=== PATIENT | male | born 1945 | race Caucasian/White ===

== ENCOUNTER 2016-12-14 12:05 | Inpatient (IN) | payer MEDICARE ==
[2016-12-14] VITALS (10 sets, daily range): BP systolic 116–165; BP diastolic 62–85; PULSE 83–101; RESP 18–20; TEMP 98–101.7; O2SAT 92–95
[~2016-12-14] VITALS: Ht 177.8 cm; Wt 99.9 kg
[~2016-12-14 12:05] MED LIST: CELE200 PO; FENT12DI TD; GABA100C4 PO
[2016-12-14] MEDS ORDERED: SODIUM CHLOR 0.9% 1000 ML INJ 1,000 ML IV ONE ×3 (12:30)
[2016-12-14] MEDS ORDERED: IBUPROFEN 600 MG TAB PO ONE (12:30)
--- NOTE | 2016-12-14 12:39 | PD ---
HPI Chief Complaint: Cold / Flu Symptoms Time Seen by Provider: 12:20 Travel History International Travel<30 days: No Contact w/Intl Traveler<30days: No Traveled to known affect area: No History of Present Illness HPI 71-year-old male with history of hypertension, CAD, CABG, here with significant other for evaluation of fever, cough, congestion, and altered mental status. Symptoms started 2 days ago with a sore throat. Yesterday the patient developed fever and cough. He was seen by [facility] urgent care and was diagnosed with influenza B and started on Relenza. Symptoms have not been improving. He went back to [facility] today and was given a breathing treatment this morning as well as a dose of Tylenol that was received about an hour prior to arrival. According to the patient's , the patient is somewhat delirious. Cough is productive of greenish/yellowish sputum, and there seems to be some pinkish sputum as well. He is having some chest tightness and difficulty breathing. No history of DVT or PE. PFSH Past Medical History Hx Anticoagulant Therapy: Yes (81MG ASA) Arthritis: Yes Blood Disorders: No Anxiety: Yes Depression: Yes Cancer: Yes (Skin) Cardiac Catheterization: Yes Cardiovascular Problems: Yes (HEART ATTACK; OPEN HEART, HTN) High Cholesterol: Yes Chemotherapy: No Congestive Heart Failure: Yes Coronary Artery Disease: Yes Diabetes: No Diminished Hearing: Yes Endocrine: No Gastrointestinal Disorders: No Genitourinary: Yes (kidney stones) Hepatitis: No Hiatal Hernia: No Hypertension: Yes Immune Disorder: No Implanted Vascular Access Dvce: Yes Kidney Stones: Yes Musculoskeletal: Yes (Chronic back pain) Neurologic: Yes (Concussion) Psychiatric: Yes (DEPRESSION) Reproductive: No Respiratory: Yes (poss sinus infection bronchial infection 4-5 mos ago) Myocardial Infarction: Yes Thyroid Disease: No PNEUMOCCOCAL Vaccine (Year): 1 Past Surgical History Abdominal Surgery: Yes (appendectomy at age 12y/o) Appendectomy: Yes Body Medical Devices: Sternal wires Cardiac Surgery: Yes (quad by-pass) Coronary Artery Bypass Graft: Yes (X's 4) Ear Surgery: No Endocrine Surgery: No Eye Surgery: No Genitourinary Surgery: Yes (Uretheral dilatation) Joint Replacement: No Oral Surgery: Yes (Sinus) Pacemaker: No Thoracic Surgery: Yes (BYPASS) Other Surgery: Yes Social History Alcohol Use: No Tobacco Use: No Substance Use: No Allergies-Medications (Allergen,Severity, Reaction): Coded Allergies: Penicillin (Verified Allergy, Severe, Rash, 12/14/16) Reported Meds & Prescriptions Reported Meds & Active Scripts Active Reported Losartan (Losartan Potassium) 50 Mg Tab 50 Mg PO DAILY Cymbalta DR (Duloxetine HCl) 60 Mg Capdr 60 Mg PO DAILY Aripiprazole 5 Mg Tab 5 Mg PO DAILY Tizanidine (Tizanidine HCl) 4 Mg Cap 4 Mg PO BID Wellbutrin Xl 24 HR (Bupropion HCl) 150 Mg Tab 150 Mg PO DAILY Lipitor (Atorvastatin Calcium) 20 Mg Tab 20 Mg PO HS Aspirin 81 (Aspirin) 81 Mg Tabdr 81 Mg PO DAILY Fentanyl Patch 72 HR (Fentanyl) 12 Mcg/Hr Patch 25 Mcg T-DERMAL Q72H Remove old patch when new one placed. Celebrex (Celecoxib) 200 Mg Cap 200 Mg PO DAILY Gabapentin 300 Mg Cap 300 Mg PO HS Review of Systems Except as stated in HPI: all other systems reviewed are Neg Physical Exam Narrative GENERAL: Well-developed, well-nourished, diaphoretic, awake, alert, no acute distress. SKIN: Diaphoretic. Hot to touch. HEAD: Atraumatic. Normocephalic. EYES: Pupils equal and round. No scleral icterus. No injection or drainage. ENT: No nasal bleeding or discharge. Mucous membranes pink and moist. Normal pharynx. Normal external auditory canals and tympanic the reins bilaterally. NECK: Trachea midline. No JVD. No nuchal rigidity. CARDIOVASCULAR: Tachycardic, rate 105, regular. RESPIRATORY: No accessory muscle use. Coarse breath sounds at right base. No wheezes or rales. Breath sounds equal bilaterally. GASTROINTESTINAL: Abdomen soft, non-tender, nondistended. MUSCULOSKELETAL: No obvious deformities. No clubbing. No cyanosis. No edema. NEUROLOGICAL: Awake and alert. No obvious cranial nerve deficits. Motor grossly within normal limits. Normal speech. PSYCHIATRIC: Appropriate mood and affect; insight and judgment normal. Data Data Last Documented VS Vital Signs Date Time Temp Pulse Resp B/P Pulse Ox O2 Delivery O2 Flow Rate FiO2 12/14/16 13:41 92 18 155/77 94 Room Air 12/14/16 12:11 101.7 Orders Electrocardiogram (12/14/16 12:30) Complete Blood Count With Diff (12/14/16 12:30) Comprehensive Metabolic Panel (12/14/16 12:30) Prothrombin Time / Inr (Pt) (12/14/16 12:30) Act Partial Throm Time (Ptt) (12/14/16 12:30) Lactic Acid Sepsis Protocol (12/14/16 12:30) Ckmb (Isoenzyme) Profile (12/14/16 12:30) Troponin I (12/14/16 12:30) Urinalysis - C+S If Indicated (12/14/16 12:30) Blood Culture (12/14/16 12:30) Chest, Single Ap (12/14/16 12:30) Ecg Monitoring (12/14/16 12:30) Iv Access Insert/Monitor (12/14/16 12:30) Oximetry (12/14/16 12:30) Oxygen Administration (12/14/16 12:30) Sodium Chlor 0.9% 1000 Ml Inj (Ns 1000 M (12/14/16 12:30) Sodium Chlor 0.9% 1000 Ml Inj (Ns 1000 M (12/14/16 12:30) Sodium Chlor 0.9% 1000 Ml Inj (Ns 1000 M (12/14/16 12:30) Ibuprofen (Motrin) (12/14/16 12:30) Influenzae A/B Antigen (12/14/16 12:33) Ceftriaxone Inj (Rocephin Inj) (12/14/16 12:45) Azithromycin Inj (Zithromax Inj) (12/14/16 12:45) CKMB (12/14/16 13:27) CKMB% (12/14/16 13:27) Patient Transfer (12/14/16 ) Oseltamivir (Tamiflu) (12/14/16 14:45) Labs Laboratory Tests Test 12/14/16 13:27 White Blood Count 20.4 TH/MM3 Red Blood Count 5.77 MIL/MM3 Hemoglobin 17.8 GM/DL Hematocrit 52.0 % Mean Corpuscular Volume 90.1 FL Mean Corpuscular Hemoglobin 30.8 PG Mean Corpuscular Hemoglobin 34.2 % Concent Red Cell Distribution Width 14.1 % Platelet Count 137 TH/MM3 Mean Platelet Volume 8.6 FL Neutrophils (%) (Auto) 85.2 % Lymphocytes (%) (Auto) 3.6 % Monocytes (%) (Auto) 7.8 % Eosinophils (%) (Auto) 0.0 % Basophils (%) (Auto) 3.4 % Neutrophils # (Auto) 17.4 TH/MM3 Lymphocytes # (Auto) 0.7 TH/MM3 Monocytes # (Auto) 1.6 TH/MM3 Eosinophils # (Auto) 0.0 TH/MM3 Basophils # (Auto) 0.7 TH/MM3 CBC Comment AUTO DIFF Differential Total Cells 100 Counted Neutrophils % (Manual) 53 % Band Neutrophils % 26 % Lymphocytes % 7 % Monocytes % 11 % Eosinophils % 3 % Neutrophils # (Manual) 16.1 TH/MM3 Differential Comment FINAL DIFF MANUAL Platelet Estimate LOW Platelet Morphology Comment NORMAL Red Cell Morphology Comment NORMAL Prothrombin Time 13.7 SEC Prothromb Time International 1.2 RATIO Ratio Activated Partial 30.6 SEC Thromboplast Time Sodium Level 136 MEQ/L Potassium Level 3.9 MEQ/L Chloride Level 97 MEQ/L Carbon Dioxide Level 30.0 MEQ/L Anion Gap 9 MEQ/L Blood Urea Nitrogen 18 MG/DL Creatinine 1.50 MG/DL Estimat Glomerular Filtration 46 ML/MIN Rate Random Glucose 103 MG/DL Lactic Acid Level 2.3 mmol/L Calcium Level 8.3 MG/DL Total Bilirubin 1.0 MG/DL Aspartate Amino Transf 87 U/L (AST/SGOT) Alanine Aminotransferase 49 U/L (ALT/SGPT) Alkaline Phosphatase 50 U/L Total Creatine Kinase 2428 U/L Creatine Kinase MB 8.1 NG/ML Creatine Kinase MB % 0.3 % Troponin I 0.15 NG/ML Total Protein 8.0 GM/DL Albumin 3.6 GM/DL MDM Medical Decision Making Medical Screen Exam Complete: Yes Emergency Medical Condition: Yes Medical Record Reviewed: Yes Interpretation(s) EKG: Sinus, rate 96, normal axis, normal intervals, Q waves in inferior leads, no acute ischemic abnormality. Differential Diagnosis Sepsis, pneumonia, influenza, ACS, dehydration, electrolyte abnormality, PE Narrative Course Initial vital signs show heart rate 101, blood pressure 144/85, pulse ox 93% on room air, oral temp of 101.7F. CBC is remarkable for WBC 20.4, hemoglobin 17.8, hematocrit 52, platelets 137, neutrophils 85%, 26% band neutrophils. CMP is remarkable for creatinine 1.5, GFR 46. Lactic acid is 2.3. Troponin is 0.15, and is likely secondary to sepsis. Chest x-ray shows no acute disease. Influenza B positive. The patient was empirically given Rocephin and azithromycin for sepsis with likely respiratory cause. His symptoms could all be secondary to flu, however superimposed bacterial infection is also possible. He was given a dose of Tamiflu. Patient was also given 3 L of IV fluids with improvement in heart rate to the low 90s. He will be admitted for further treatment and evaluation of sepsis, influenza. Given the patient's age, sepsis, and positive influenza B swab, admission to the intensive care unit is in the patient's best interest. Case discussed with paper coater Dr. Moe who would like the patient to be emergently transferred to the main hospital ICU. The patient and the patient's were made aware of all findings and plan for admission. Critical Care Narrative Aggregate critical care time was 35 minutes. Time to perform other separately billable procedures was not included in the critical care time. My time did not include minutes spent treating any other patients simultaneously or on activities that did not directly contribute to the patient's treatment. The services I provided to this patient were to treat and/or prevent clinically significant deterioration that could result in: , permanent disability, worsening clinical condition. I provided critical care services requiring my management, as noted below: Chart data review, documentation time, medication orders and management, vital sign assessments/reviewing monitor data, ordering and reviewing lab tests, ordering and interpreting/reviewing x-rays and diagnostic studies, care of the patient and discussion of the patient with the admitting physicians. Diagnosis Primary Impression: Sepsis Qualified Code: A41.9 - Sepsis, due to unspecified organism Additional Impression: Influenza B Admitting Information Admitting Physician Requests: Admit Aaron Beltre MD Dec 14, 2016 12:39
[2016-12-14] MEDS ORDERED: cefTRIAXone INJ 1,000 MG in SODIUM CHLORIDE 0.9% INJ 100 ML IV ONE (12:45)
[2016-12-14] MEDS ORDERED: AZITHROMYCIN INJ 500 MG in SODIUM CHLOR 0.9% 250 ML INJ 250 ML IV ONE (12:45)
--- NOTE | 2016-12-14 12:55 | RADHPO ---
EXAM DATE/TIME: 12/14/2016 12:33 [facility] COMPARISON: CHEST SINGLE AP, March 31, 2013, 20:47. INDICATIONS : Fever, shortness of breath, and congestion for two days. Productive cough of green and yellow sputum. MEDICAL HISTORY : Hypertension. SURGICAL HISTORY : CABG. ENCOUNTER: Initial ACUITY: 2 days PAIN SCORE: 1/10 LOCATION: Bilateral chest FINDINGS: A single view of the chest demonstrates the lungs to be symmetrically aerated without evidence of mas s, infiltrate or effusion. The cardiomediastinal contours are unremarkable. Osseous structures are intact. CONCLUSION: Normal examination. Numerous intact sternal wires Yo Valles MD on December 14, 2016 at 12:53 Board Certified Radiologist. This report was verified electronically.
[2016-12-14 13:39] LABS: AUTOMATED NEUTROPHIL # 17.4 TH/MM3 (1.8-7.7); BASOPHIL # 0.7 TH/MM3 (0-0.2); BASOPHIL % 3.4 % (0.0-2.0); LYMPH % 3.6 % (9.0-44.0); LYMPHOCYTE # 0.7 TH/MM3 (1.0-4.8); MEAN CELL VOLUME 90.1 FL (80.0-100.0); MEAN CORPUSCULAR HEMOGLOBIN 30.8 PG (27.0-34.0); MEAN CORPUSCULAR HGB CONC 34.2 % (32.0-36.0); MONO % 7.8 % (0.0-8.0); NEUT % 85.2 % (16.0-70.0); PLATELET COUNT 137 TH/MM3 (150-450); RED BLOOD COUNT 5.77 MIL/MM3 (4.50-5.90); RED CELL DISTRIBUTION WIDTH 14.1 % (11.6-17.2); WHITE BLOOD COUNT 20.4 TH/MM3 (4.0-11.0)
[2016-12-14 13:45] LABS: HEMO FLAGS AUTO DIFF
[2016-12-14 13:47] LABS: CHLORIDE 97 MEQ/L (98-107); POTASSIUM 3.9 MEQ/L (3.5-5.1); SODIUM (NA) 136 MEQ/L (136-145)
[2016-12-14 13:51] LABS: ANION GAP 9 MEQ/L (5-15)
[2016-12-14 13:52] LABS: APTT (PATIENT) 30.6 SEC (24.3-30.1); BLOOD UREA NITROGEN 18 MG/DL (7-18); INTERNATIONAL NORMALIZED RATIO 1.2 RATIO; PROTHROMBIN TIME - PATIENT 13.7 SEC (9.8-11.6)
[2016-12-14 13:55] LABS: ALT (GPT) 49 U/L (12-78); AST (GOT) 87 U/L (15-37); GLOMERULAR FILTRATION RATE 46 ML/MIN (>89)
[2016-12-14 13:57] LABS: ALKALINE PHOSPHATASE 50 U/L (45-117)
[2016-12-14 14:03] LABS: BANDS 26 % (0-6); EOSINOPHILS 3 % (0-4); NEUTROPHIL # MANUAL DIFF 16.1 TH/MM3 (1.8-7.7); POLYS (SEG NEUTROPHILS) 53 % (16-70); WBC DIFF SAMPLE 100
[2016-12-14] MEDS ORDERED: GABA300C5 PO ×2 (14:03)
[2016-12-14] MEDS ORDERED: CELE200C PO (14:03)
[2016-12-14] MEDS ORDERED: ASPI-110 PO ×2 (14:03)
[2016-12-14] MEDS ORDERED: FENT12DI T-DERMAL ×2 (14:03)
[2016-12-14] MEDS ORDERED: LIPI20TA PO ×2 (14:03)
[2016-12-14] MEDS ORDERED: BUPR150XL PO ×2 (14:03)
[2016-12-14 14:04] LABS: PLATELET ESTIMATE SMEAR LOW (NORMAL); PLATELET MORPHOLOGY NORMAL (NORMAL); SCAN/DIFF FINAL DIFF MANUAL
[2016-12-14 14:09] LABS: CREATINE KINASE 2428 U/L (39-308)
[2016-12-14] MEDS ORDERED: TIZA4CAP3 PO ×2 (14:11)
[2016-12-14] MEDS ORDERED: LOSA50TA PO (14:11)
[2016-12-14] MEDS ORDERED: ARIP1TAB11 PO (14:11)
[2016-12-14] MEDS ORDERED: CYMB60CA PO ×2 (14:11)
[2016-12-14 14:21] LABS: CKMB 8.1 NG/ML (0.5-3.6)
[2016-12-14] MEDS ORDERED: OSELTAMIVIR PHOSPHATE 75 MG CAP PO ONE (14:45)
[2016-12-14 15:38] LABS: LACTIC ACID GHOST NOT REPORTABLE
[2016-12-14] MEDS ORDERED: POTASSIUM CHLOR 20 MEQ PREMIX 100 ML IV PRN ×2 (17:00)
[2016-12-14] MEDS ORDERED: POTASSIUM CL 40 MEQ/30 ML LIQ UDC PO/TUBE PRN ×2 (17:00)
[2016-12-14] MEDS ORDERED: POTASSIUM PHOSPHATE MONOBASIC 500 MG TAB PO/TUBE PRN (17:00)
[2016-12-14] MEDS ORDERED: MAGNESIUM SULFATE INJ 2 GM in SODIUM CHLORIDE 0.9% INJ 96 ML IV PRN (17:00)
[2016-12-14] MEDS ORDERED: MISCELLANEOUS NURSING INFORMATION XX SCH (17:00)
[2016-12-14] MEDS ORDERED: DEXTROSE 50% IN WATER 50 ML VIAL(D50) IV PUSH PRN (17:00)
[2016-12-14] MEDS ORDERED: POTASSIUM PHOSPHATE INJ 30 MMOL in SODIUM CHLOR 0.9% 250 ML INJ 250 ML IV PRN (17:00)
[2016-12-14] MEDS ORDERED: ONDANSETRON HCL 4 MG/2 ML VIAL IV PRN (17:00)
[2016-12-14] MEDS ORDERED: POTASSIUM PHOSPHATE MONOBASIC 500 MG TAB PO PRN (17:00)
[2016-12-14] MEDS ORDERED: SODIUM CHLORIDE 0.9% FLUSH 5 ML FLUSH IV FLUSH PRN (17:00)
[2016-12-14] MEDS ORDERED: POTASSIUM CHLOR 40 MEQ PREMIX 100 ML IV PRN ×2 (17:00)
[2016-12-14] MEDS ORDERED: MAGNESIUM OXIDE 400 MG TAB PO PRN (17:00)
[2016-12-14] MEDS ORDERED: CHLORHEXIDINE GLUCONATE 2 % 1 PACK (2 CLOTHS) TOP PRN (17:00)
[2016-12-14] MEDS ORDERED: SODIUM PHOSPHATE INJ 30 MMOL in SODIUM CHLOR 0.9% 250 ML INJ 240 ML IV PRN (17:00)
[2016-12-14] MEDS ORDERED: MAGNESIUM SULFATE INJ 4 GM in SODIUM CHLORIDE 0.9% INJ 92 ML IV PRN (17:00)
--- NOTE | 2016-12-14 17:36 | HHI.HP ---
[facility] Service Critical Care Medicine Primary Care Physician Gen Denton MD Admission Diagnosis sepsis, influenza B Diagnosis: Chief Complaint: shortness of breath Travel History International Travel<30 Days: No Contact w/Intl Traveler <30 Da: No Traveled to Known Affected Are: No History of Present Illness This is a 71-year-old male with a history of hypertension, coronary disease with prior NC in his mid 40s, 4 vessel CABG in his 60s, who initially presented to an urgent care center with fever, cough, congestion and was diagnosed with influenza and given an antiviral at that time. He re-presented to the [facility] emergency department with similar symptoms, but altered mental status and hypotension with lactic acidosis. He again test positive for influenza B. Of note, he did get the influenza vaccine approximately 4 months ago. He was given 3 L normal saline and his hypotension resolved. He is transferred to the [facility] intensive care unit for evaluation and management of severe sepsis secondary to influenza pneumonia. Review of Systems Constitutional: COMPLAINS OF: Fever, Chills, DENIES: Diaphoretic episodes, Fatigue, Weight loss, Dizziness, Night Sweats Endocrine: DENIES: Heat/cold intolerance Ears, nose, mouth, throat: DENIES: Nasal discharge, Throat pain, Sinus Pain Respiratory: COMPLAINS OF: Cough, Sputum production, Shortness of breath, DENIES: Wheezing, Hemoptysis Cardiovascular: DENIES: Chest pain, Palpitations, Syncope, Dyspnea on Exertion , Lower Extremity Edema Gastrointestinal: DENIES: Abdominal pain, Black stools, Constipation, Diarrhea , Nausea, Vomiting Neurologic: DENIES: Headache, Localized weakness Psychiatric: DENIES: Anxiety, Confusion Past Family Social History Allergies: Coded Allergies: Penicillin (Verified Allergy, Severe, Rash, 12/14/16) Past Medical History Arthritis Anxiety Depression Skin cancer Prior cardiac catheterization History of acute NC in his 40s Hypertension Hyperlipidemia Congestive heart failure Coronary artery disease Diminished hearing Kidney stones Chronic back pain Remote history of concussions Past Surgical History Appendectomy at age 12 Four-vessel CABG in his 60s Urethral dilation Sinus surgery Reported Medications Losartan (Losartan Potassium) 50 Mg Tab 50 Mg PO DAILY Cymbalta DR (Duloxetine HCl) 60 Mg Capdr 60 Mg PO DAILY Aripiprazole 5 Mg Tab 5 Mg PO DAILY Tizanidine (Tizanidine HCl) 4 Mg Cap 4 Mg PO BID Wellbutrin Xl 24 HR (Bupropion HCl) 150 Mg Tab 150 Mg PO DAILY Lipitor (Atorvastatin Calcium) 20 Mg Tab 20 Mg PO HS Aspirin 81 (Aspirin) 81 Mg Tabdr 81 Mg PO DAILY Fentanyl Patch 72 HR (Fentanyl) 12 Mcg/Hr Patch 25 Mcg T-DERMAL Q72H Remove old patch when new one placed. Celebrex (Celecoxib) 200 Mg Cap 200 Mg PO DAILY Gabapentin 300 Mg Cap 300 Mg PO HS Active Ordered Medications See MAR Family History Reviewed and found to be noncontributory to his acute illness. Social History Denied tob, etoh, doa. Physical Exam Vital Signs Vital Signs Date Time Temp Pulse Resp B/P Pulse Ox O2 Delivery O2 Flow Rate FiO2 12/14/16 15:13 83 18 116/62 94 Room Air 12/14/16 15:07 98.9 12/14/16 13:41 92 18 155/77 94 Room Air 12/14/16 13:20 95 18 93 Room Air 12/14/16 13:18 96 Room Air 12/14/16 13:18 92 Room Air 12/14/16 12:11 101.7 101 18 144/85 93 Physical Exam GENERAL: Elderly male, lying in bed, no acute distress. HEENT: Pupils equal round and reactive. Mucous membranes are moist. NECK: Trachea is midline. There is no JVD. CHEST: Unlabored respirations. Equal chest rise. Clear to auscultation. CARDIOVASCULAR: Normal rate, regular rhythm. No appreciable murmurs. ABDOMEN: Obese, nontender, nondistended. No guarding. MUSCULOSKELETAL: Peripheral edema. Distal pulses 2+. NEUROLOGICAL: RASS 0. CAM -. Follows commands in all 4 extremities. No gross focal motor or sensory deficits. Laboratory Laboratory Tests Test 12/14/16 12/14/16 13:27 15:12 White Blood Count 20.4 Red Blood Count 5.77 Hemoglobin 17.8 Hematocrit 52.0 Mean Corpuscular Volume 90.1 Mean Corpuscular Hemoglobin 30.8 Mean Corpuscular Hemoglobin 34.2 Concent Red Cell Distribution Width 14.1 Platelet Count 137 Mean Platelet Volume 8.6 Neutrophils (%) (Auto) 85.2 Lymphocytes (%) (Auto) 3.6 Monocytes (%) (Auto) 7.8 Eosinophils (%) (Auto) 0.0 Basophils (%) (Auto) 3.4 Neutrophils # (Auto) 17.4 Lymphocytes # (Auto) 0.7 Monocytes # (Auto) 1.6 Eosinophils # (Auto) 0.0 Basophils # (Auto) 0.7 CBC Comment AUTO DIFF Differential Total Cells 100 Counted Neutrophils % (Manual) 53 Band Neutrophils % 26 Lymphocytes % 7 Monocytes % 11 Eosinophils % 3 Neutrophils # (Manual) 16.1 Differential Comment FINAL DIFF MANUAL Platelet Estimate LOW Platelet Morphology Comment NORMAL Red Cell Morphology Comment NORMAL Prothrombin Time 13.7 Prothromb Time International 1.2 Ratio Activated Partial 30.6 Thromboplast Time Sodium Level 136 Potassium Level 3.9 Chloride Level 97 Carbon Dioxide Level 30.0 Anion Gap 9 Blood Urea Nitrogen 18 Creatinine 1.50 Estimat Glomerular Filtration 46 Rate Random Glucose 103 Lactic Acid Level 2.3 2.4 Calcium Level 8.3 Total Bilirubin 1.0 Aspartate Amino Transf 87 (AST/SGOT) Alanine Aminotransferase 49 (ALT/SGPT) Alkaline Phosphatase 50 Total Creatine Kinase 2428 Creatine Kinase MB 8.1 Creatine Kinase MB % 0.3 Troponin I 0.15 Total Protein 8.0 Albumin 3.6 Date/Time Procedure Status Source Growth 12/14/16 13:35 Aerobic Blood Culture Received Blood Peripheral Pending 12/14/16 13:35 Anaerobic Blood Culture Received Blood Peripheral Pending 12/14/16 13:12 Influenza Types A,B Antigen ([place]) - Final Complete Nasal Washing Positive For Flu B Antigen Result Diagram: 12/14/16 1327 12/14/16 1327 Assessment and Plan Assessment and Plan Assessment: This is a 71-year-old male with history of coronary disease who presents with worsening symptoms of influenza and an elevated lactic acid with initial hypertension, suggestive of possible early severe sepsis secondary to influence and ammonia. There is certainly a possibility that he has a superimposed bacterial infection. I agree with the management to admit him to the ICU and monitor him closely. I also agree with covering him for empiric bacterial community acquired pneumonia and await culture data. If culture data is negative at 48 hours, we will de-escalate therapy. We will continue him on Tamiflu. He is currently stable with SPO2 of 92% on room air. Plan: 1. Influenza B pneumonia -- Continue Tamiflu 75mg po BID -- tylenol 650mg po q6h prn for pain or fever -- wean o2 by NC for goal spo2 > 90%. currently on room air. 2. Severe sepsis secondary to Influenza -- BP improved. -- lactate stable at 2.5 -- recheck lactate in the AM. -- NS mivf @ 100cc/hr. 3. Type II NSTEMI secondary to demand ischemia -- no symptoms of ACS -- trend troponins q8h until downtrending -- will likely need follow-up with outpatient map maker 4. Chronic pain -- restart home gabapentin -- continue home fentanyl patch 5. Acute Kidney Injury -- likely secondary to severe sepsis -- strict I/Os -- recheck BMP in AM. 6. Possible super-imposed secondary bacterial community acquired pneumonia -- continue Rocephin 1gm iv q24h -- continue Azithromycin 500mg iv q24h -- f/u blood, sputum cultures -- if cultures are negative at 48h, will de-escalate broad spectrum abx therapy. -- daily CBC 7. Depression -- continue home welbutrin and cymbalta 8. History of Hypertension -- hold antihypertensives in the setting of recent severe sepsis. 9. Hyperlipidemia -- continue home atorvastatin. 10. Coronary Artery Disease -- continue home aspirin. -- Nursing bedside swallow assessment, if passes, advance to clear liquid and then heart healthy diet as tolerated -- Lovenox and SCDs for DVT Prophylaxis -- no evidence-based indication for GI prophylaxis at this time. -- admit to the ICU. will transfer to hospitalist service in the AM. Code Status Full Code Marquez Moe MD Dec 14, 2016 17:36
[2016-12-14] MEDS: fentaNYL 25 MCG/HR PATCH TD SCH (18:26)
[2016-12-14] MEDS: ENOXAPARIN SODIUM 40 MG/0.4 ML SYRINGE SQ SCH (18:27)
[2016-12-14] MEDS: SODIUM CHLOR 0.9% 1000 ML INJ 1,000 ML IV SCH (18:29)
[2016-12-14] MEDS: RESP: ALBUTEROL 2.5 MG/IPRATROPIUM 0.5 MG NEB (SCH) INH (20:00)
[2016-12-14] MEDS: OSELTAMIVIR PHOSPHATE 75 MG CAP PO SCH (20:40)
[2016-12-14] MEDS: GABAPENTIN 300 MG CAP PO SCH (20:41)
[2016-12-14] MEDS: DOCUSATE SODIUM 50 MG/SENNA 8.6 MG TAB PO SCH (20:41)
[2016-12-14] MEDS: SODIUM CHLORIDE 0.9% FLUSH 5 ML FLUSH IV FLUSH SCH (20:41)
[2016-12-14] MEDS: ATORVASTATIN 20 MG TAB PO SCH (20:41)
[2016-12-14] MEDS: INSULIN NovoLIN REGULAR SUPPLEMENTAL SCALE SQ SCH (21:00)
[2016-12-15] VITALS (14 sets, daily range): BP systolic 74–185; BP diastolic 40–83; PULSE 74–110; RESP 16–24; TEMP 98.8–102.3; O2SAT 90–99
[2016-12-15] MEDS: INSULIN NovoLIN REGULAR SUPPLEMENTAL SCALE SQ SCH ×5 (03:00→20:04)
[2016-12-15] MEDS: RESP: ALBUTEROL 2.5 MG/IPRATROPIUM 0.5 MG NEB (SCH) INH ×4 (03:32→19:31)
[2016-12-15] MEDS: CHLORHEXIDINE GLUCONATE 2 % 1 PACK (2 CLOTHS) TOP SCH (03:47)
[2016-12-15 05:18] LABS: HEMATOCRIT 46.5 % (39.0-51.0); MEAN CORPUSCULAR HEMOGLOBIN 30.3 PG (27.0-34.0); MEAN CORPUSCULAR HGB CONC 33.3 % (32.0-36.0); PLATELET COUNT 117 TH/MM3 (150-450); RED BLOOD COUNT 5.11 MIL/MM3 (4.50-5.90); RED CELL DISTRIBUTION WIDTH 15.2 % (11.6-17.2); REVIEW FLAG FINAL; WHITE BLOOD COUNT 15.1 TH/MM3 (4.0-11.0)
[2016-12-15] MEDS: SODIUM CHLOR 0.9% 1000 ML INJ 1,000 ML IV SCH ×2 (06:24→16:46)
[2016-12-15] MEDS ORDERED: ENALAPRILAT 1.25 MG/ML VIAL IV PUSH PRN (09:00)
[2016-12-15] MEDS: DOCUSATE SODIUM 50 MG/SENNA 8.6 MG TAB PO SCH ×2 (09:00→19:47)
[2016-12-15] MEDS ORDERED: LOSARTAN 50 MG TAB PO SCH (09:00)
[2016-12-15] MEDS ORDERED: ARIPiprazole 5 MG TAB PO SCH (09:00)
[2016-12-15] MEDS: SODIUM CHLORIDE 0.9% FLUSH 5 ML FLUSH IV FLUSH SCH ×2 (09:00→20:04)
[2016-12-15] MEDS: OSELTAMIVIR PHOSPHATE 75 MG CAP PO SCH ×2 (09:36→20:03)
[2016-12-15] MEDS: DULoxetine HCl DR 60 MG CAP PO SCH (09:36)
[2016-12-15] MEDS: buPROPion HCL 150 MG SUSTAINED RELEASE TAB PO SCH (09:36)
[2016-12-15] MEDS: ASPIRIN EC 81 MG TABEC PO SCH (09:36)
--- NOTE | 2016-12-15 09:56 | HHI.PR ---
Subjective Remarks oriented coughing up thick alford/brown sputum Objective Vitals heart reg lung rhonci throughout abd s/nt ext no edema Vital Signs Date Time Temp Pulse Resp B/P Pulse Ox O2 Delivery O2 Flow Rate FiO2 12/15/16 09:24 94 Nasal Cannula 4.00 12/15/16 06:00 91 12/15/16 04:00 95 12/15/16 04:00 98.9 95 20 141/69 93 12/15/16 02:00 94 12/15/16 00:00 98.8 93 16 124/61 93 12/15/16 00:00 93 12/14/16 22:00 87 12/14/16 20:01 94 12/14/16 20:00 86 12/14/16 20:00 98.0 86 20 165/85 95 12/14/16 18:00 99.0 85 19 139/64 92 12/14/16 18:00 85 12/14/16 15:13 83 18 116/62 94 Room Air 12/14/16 15:07 98.9 12/14/16 13:41 92 18 155/77 94 Room Air 12/14/16 13:20 95 18 93 Room Air 12/14/16 13:18 96 Room Air 12/14/16 13:18 92 Room Air 12/14/16 12:11 101.7 101 18 144/85 93 12/14/16 12/14/16 12/15/16 15:00 23:00 07:00 Intake Total 3598 ml 1057 ml Output Total 375 ml Balance 3223 ml 1057 ml Intake Oral 960 ml 480 ml IV Total 2638 ml 577 ml Output Urine Total 375 ml # Voids 4 1 # Bowel Movements 1 0 Result Diagram: 12/15/16 0440 12/14/16 1327 A/P Problem List: (1) Pneumonia Status: Acute Plan: Pt is 71 yo with Influenza B and admitted for Pneumonia..probably some superimposed bacterial pna and respiratory distress. ana noted from infection/dehydration thrombocytopenia most likely related to acute infection. cont tamiflu and abx for cap gs/cx to exclude mrsa cont nebs. add mucomyst dvt prophylaxis bp control today. wean oxygen as tolerated ADDENDUM: called by RN. by was more lethargic and sbp 74 we gave ns 1 L bolus and now sbp 90s and more awake. will add vanco for mrsa coverage until cx available. stop losartan. stop abilify as pt says no longer taking. hold zanaflex. monitor for pulmonary edema after all of the fluid resuscitation. If he has further hypotensio will reconsult data analytics developer. discussed with Dr Hassan. (2) Influenza B Status: Acute Plan: see above (3) ANA (acute kidney injury) Status: Acute Plan: see above (4) Thrombocytopenia Status: Acute Plan: see above (5) HTN (hypertension) Status: Acute Plan: acutely elevated cont home meds plus prn meds. (6) Depression Status: Chronic Plan: cont home meds (7) CAD (coronary artery disease) Status: Chronic Smith Ochoa MD Dec 15, 2016 09:56
[2016-12-15] MEDS: RESP: ACETYLCYSTEINE 20% 30 ML NEB NEB SCH ×3 (10:36→19:31)
[2016-12-15] MEDS: cefTRIAXone INJ 1,000 MG in SODIUM CHLORIDE 0.9% INJ 100 ML IV SCH (12:13)
[2016-12-15] MEDS: AZITHROMYCIN INJ 500 MG in SODIUM CHLOR 0.9% 250 ML INJ 250 ML IV SCH (13:18)
--- NOTE | 2016-12-15 13:40 | EKG ---
Date Performed: 12/14/2016 Time Performed: 12:34:34 PTAGE: 71 years EKG: Sinus rhythm Possible inferior infarct - age undetermined Compared to prior tracing no significant change Abnorma l ECG PREVIOUS TRACING : 07/03/2014 22.12 DOCTOR: Julian Segundo Interpretating Date/Time 12/15/2016 13:38:22
[2016-12-15] MEDS ORDERED: SODIUM CHLOR 0.9% 1000 ML INJ 1,000 ML IV ONE (15:45)
[2016-12-15] MEDS ORDERED: Vancomycin Consult Pharmacy 1 EA OTHER SCH (15:45)
[2016-12-15] MEDS ORDERED: VANCOMYCIN INJ 1,000 MG in SODIUM CHLOR 0.9% 250 ML INJ 250 ML IV ONE (15:45)
[2016-12-15] MEDS: VANCOMYCIN INJ 1,700 MG in SODIUM CHLORID 0.9% 500 ML INJ 500 ML IV SCH (16:47)
[2016-12-15] MEDS: ENOXAPARIN SODIUM 40 MG/0.4 ML SYRINGE SQ SCH (17:00)
[2016-12-15] MEDS: GABAPENTIN 300 MG CAP PO SCH (20:03)
[2016-12-15] MEDS: ATORVASTATIN 20 MG TAB PO SCH (20:03)
[2016-12-16] VITALS (11 sets, daily range): BP systolic 96–154; BP diastolic 52–69; PULSE 76–84; RESP 18–24; TEMP 98–98.9; O2SAT 91–96
[2016-12-16] MEDS: SODIUM CHLOR 0.9% 1000 ML INJ 1,000 ML IV SCH ×3 (01:37→22:00)
[2016-12-16] MEDS: INSULIN NovoLIN REGULAR SUPPLEMENTAL SCALE SQ SCH ×5 (02:00→21:00)
[2016-12-16] MEDS: RESP: ACETYLCYSTEINE 20% 30 ML NEB NEB SCH ×4 (03:41→19:25)
[2016-12-16] MEDS: RESP: ALBUTEROL 2.5 MG/IPRATROPIUM 0.5 MG NEB (SCH) INH ×4 (03:41→19:25)
[2016-12-16] MEDS: CHLORHEXIDINE GLUCONATE 2 % 1 PACK (2 CLOTHS) TOP SCH (04:00)
--- NOTE | 2016-12-16 05:38 | RADRPT ---
EXAM DATE/TIME: 12/16/2016 03:27 [facility] COMPARISON: CHEST SINGLE AP, December 14, 2016, 12:33. INDICATIONS : Shortness of breath, possible pulmonary disease. MEDICAL HISTORY : Hypertension. SURGICAL HISTORY : CABG. ENCOUNTER: Subsequent ACUITY: 3 days PAIN SCORE: 0/10 LOCATION: Bilateral chest FINDINGS: There appears to be developing right basilar infiltrate. Cardiac contours are grossly stable with not e of previous sternotomy. CONCLUSION: Developing right base infiltrate Mo Catalan MD on December 16, 2016 at 5:35 Board Certified Radiologist. This report was verified electronically.
[2016-12-16 07:45] LABS: AUTOMATED NEUTROPHIL # 7.4 TH/MM3 (1.8-7.7); BASOPHIL % 0.3 % (0.0-2.0); EOSINOPHIL % 0.1 % (0.0-4.0); HEMATOCRIT 44.8 % (39.0-51.0); LYMPH % 9.7 % (9.0-44.0); LYMPHOCYTE # 0.9 TH/MM3 (1.0-4.8); MEAN CELL VOLUME 91.7 FL (80.0-100.0); MEAN CORPUSCULAR HEMOGLOBIN 30.6 PG (27.0-34.0); MEAN CORPUSCULAR HGB CONC 33.4 % (32.0-36.0); MONO % 11.8 % (0.0-8.0); NEUT % 78.1 % (16.0-70.0); PLATELET COUNT 135 TH/MM3 (150-450); RED BLOOD COUNT 4.88 MIL/MM3 (4.50-5.90); RED CELL DISTRIBUTION WIDTH 15.3 % (11.6-17.2); WHITE BLOOD COUNT 9.5 TH/MM3 (4.0-11.0)
[2016-12-16 07:51] LABS: BICARBONATE 25.6 MEQ/L (21.0-32.0); POTASSIUM 3.7 MEQ/L (3.5-5.1)
[2016-12-16 08:40] LABS: HEMO FLAGS AUTO DIFF
[2016-12-16 08:46] LABS: BANDS 15 % (0-6); PLATELET ESTIMATE SMEAR LOW (NORMAL); PLATELET MORPHOLOGY NORMAL (NORMAL); POLYS (SEG NEUTROPHILS) 59 % (16-70); SCAN/DIFF FINAL DIFF MANUAL; WBC DIFF SAMPLE 100
[2016-12-16] MEDS: OSELTAMIVIR PHOSPHATE 75 MG CAP PO SCH ×2 (09:10→22:38)
[2016-12-16] MEDS: DULoxetine HCl DR 60 MG CAP PO SCH (09:10)
[2016-12-16] MEDS: ASPIRIN EC 81 MG TABEC PO SCH (09:10)
[2016-12-16] MEDS: DOCUSATE SODIUM 50 MG/SENNA 8.6 MG TAB PO SCH ×2 (09:11→22:38)
[2016-12-16] MEDS: buPROPion HCL 150 MG SUSTAINED RELEASE TAB PO SCH (09:11)
[2016-12-16] MEDS: SODIUM CHLORIDE 0.9% FLUSH 5 ML FLUSH IV FLUSH SCH ×2 (09:11→22:37)
--- NOTE | 2016-12-16 11:30 | HHI.PR ---
Subjective Remarks Pt feels overall that he is improving. Still coughing up yellow, thick phlegm Pt is on 4L NC Objective Vitals Vital Signs Date Time Temp Pulse Resp B/P Pulse Ox O2 Delivery O2 Flow Rate FiO2 12/16/16 09:27 94 Nasal Cannula 4.00 12/16/16 06:00 80 12/16/16 04:00 98.6 77 18 154/67 96 12/16/16 04:00 77 12/16/16 02:00 78 12/16/16 00:00 83 12/16/16 00:00 98.7 83 20 96/52 92 12/15/16 22:00 80 12/15/16 20:09 99 Nasal Cannula 4.00 12/15/16 20:00 98.9 83 17 112/63 97 12/15/16 20:00 83 12/15/16 18:00 80 12/15/16 16:00 98.9 74 20 87/40 97 12/15/16 16:00 74 12/15/16 14:00 74 12/15/16 12:00 75 12/15/16 12:00 99.0 75 20 74/51 90 12/15/16 12/15/16 12/16/16 15:00 23:00 07:00 Intake Total 1872 ml 1121 ml 1115 ml Output Total 450 ml 325 ml 400 ml Balance 1422 ml 796 ml 715 ml Intake Oral 480 ml 480 ml IV Total 1392 ml 1121 ml 635 ml Output Urine Total 450 ml 325 ml 400 ml # Bowel Movements 1 1 0 Result Diagram: 12/16/16 0552 12/16/16 0552 Other Results Laboratory Tests Test 12/14/16 12/14/16 12/14/16 12/14/16 13:27 15:12 17:15 21:25 White Blood Count 20.4 TH/MM3 Red Blood Count 5.77 MIL/MM3 Hemoglobin 17.8 GM/DL Hematocrit 52.0 % Mean Corpuscular Volume 90.1 FL Mean Corpuscular Hemoglobin 30.8 PG Mean Corpuscular Hemoglobin 34.2 % Concent Red Cell Distribution Width 14.1 % Platelet Count 137 TH/MM3 Mean Platelet Volume 8.6 FL Neutrophils (%) (Auto) 85.2 % Lymphocytes (%) (Auto) 3.6 % Monocytes (%) (Auto) 7.8 % Eosinophils (%) (Auto) 0.0 % Basophils (%) (Auto) 3.4 % Neutrophils # (Auto) 17.4 TH/MM3 Lymphocytes # (Auto) 0.7 TH/MM3 Monocytes # (Auto) 1.6 TH/MM3 Eosinophils # (Auto) 0.0 TH/MM3 Basophils # (Auto) 0.7 TH/MM3 CBC Comment AUTO DIFF Differential Total Cells 100 Counted Neutrophils % (Manual) 53 % Band Neutrophils % 26 % Lymphocytes % 7 % Monocytes % 11 % Eosinophils % 3 % Neutrophils # (Manual) 16.1 TH/MM3 Differential Comment FINAL DIFF MANUAL Platelet Estimate LOW Platelet Morphology Comment NORMAL Red Cell Morphology Comment NORMAL Prothrombin Time 13.7 SEC Prothromb Time International 1.2 RATIO Ratio Activated Partial 30.6 SEC Thromboplast Time Sodium Level 136 MEQ/L Potassium Level 3.9 MEQ/L Chloride Level 97 MEQ/L Carbon Dioxide Level 30.0 MEQ/L Anion Gap 9 MEQ/L Blood Urea Nitrogen 18 MG/DL Creatinine 1.50 MG/DL Estimat Glomerular Filtration 46 ML/MIN Rate Random Glucose 103 MG/DL Lactic Acid Level 2.3 mmol/L 2.4 mmol/L Calcium Level 8.3 MG/DL Total Bilirubin 1.0 MG/DL Aspartate Amino Transf 87 U/L (AST/SGOT) Alanine Aminotransferase 49 U/L (ALT/SGPT) Alkaline Phosphatase 50 U/L Total Creatine Kinase 2428 U/L Creatine Kinase MB 8.1 NG/ML Creatine Kinase MB % 0.3 % Troponin I 0.15 NG/ML 0.12 NG/ML Total Protein 8.0 GM/DL Albumin 3.6 GM/DL Nasal Screen MRSA (PCR) NEGATIVE Test 12/15/16 12/15/16 12/16/16 04:40 14:46 05:52 White Blood Count 15.1 TH/MM3 9.5 TH/MM3 Red Blood Count 5.11 MIL/MM3 4.88 MIL/MM3 Hemoglobin 15.5 GM/DL 14.9 GM/DL Hematocrit 46.5 % 44.8 % Mean Corpuscular Volume 91.0 FL 91.7 FL Mean Corpuscular Hemoglobin 30.3 PG 30.6 PG Mean Corpuscular Hemoglobin 33.3 % 33.4 % Concent Red Cell Distribution Width 15.2 % 15.3 % Platelet Count 117 TH/MM3 135 TH/MM3 Mean Platelet Volume 9.2 FL 10.1 FL Lactic Acid Level 1.6 mmol/L Troponin I 0.19 NG/ML 0.18 NG/ML Neutrophils (%) (Auto) 78.1 % Lymphocytes (%) (Auto) 9.7 % Monocytes (%) (Auto) 11.8 % Eosinophils (%) (Auto) 0.1 % Basophils (%) (Auto) 0.3 % Neutrophils # (Auto) 7.4 TH/MM3 Lymphocytes # (Auto) 0.9 TH/MM3 Monocytes # (Auto) 1.1 TH/MM3 Eosinophils # (Auto) 0.0 TH/MM3 Basophils # (Auto) 0.0 TH/MM3 CBC Comment AUTO DIFF Differential Total Cells 100 Counted Neutrophils % (Manual) 59 % Band Neutrophils % 15 % Lymphocytes % 12 % Monocytes % 14 % Neutrophils # (Manual) 7.0 TH/MM3 Differential Comment FINAL DIFF MANUAL Platelet Estimate LOW Platelet Morphology Comment NORMAL Red Cell Morphology Comment NORMAL Sodium Level 137 MEQ/L Potassium Level 3.7 MEQ/L Chloride Level 102 MEQ/L Carbon Dioxide Level 25.6 MEQ/L Anion Gap 9 MEQ/L Blood Urea Nitrogen 21 MG/DL Creatinine 1.49 MG/DL Estimat Glomerular Filtration 46 ML/MIN Rate Random Glucose 68 MG/DL Calcium Level 7.5 MG/DL Imaging Last Impressions Chest X-Ray 12/16/16 0600 Signed Impressions: Service Date/Time: Friday, December 16, 2016 03:27 - CONCLUSION: Developing right base infiltrate Mo Catalan MD Objective Remarks General: NAD, Alert oriented Chest: Coarse breath sounds bilaterally, decreased at the right base Cardiac: Irregular Abd: +BS, soft ND/NT Ext: No edema A/P Problem List: (1) Pneumonia Status: Acute Plan: - Pt is 71 yo with Influenza B and admitted for Pneumonia, probably some superimposed bacterial PNA and respiratory distress, ana noted from infection/dehydration, and thrombocytopenia most likely related to acute infection. - Pt was admitted to ICU - Tamiflu - Blood cultures (12/14/16) with one out of four cultures growing out gram positive rods - Sputum culture is pending to exclude MRSA - Cont. Azithromycin/Ceftriaxone/Vancomycin - Cont nebs. - Cont. Mucomyst - On 12/15 pt had some hypotension and lethargy. Pt was given IVF 1L bolus with some improvement in the BP and pt became more awake. Abilify and Zanaflex stopped. Losartan was stopped yesterday, monitor vitals - BP is stable now - Pt is on 4L NC - DVT prophylaxis (2) Influenza B Status: Acute Plan: - See above (3) ANA (acute kidney injury) Status: Acute Plan: - See above - Labs stable currently - Monitor (4) Thrombocytopenia Status: Acute Plan: - See above (5) HTN (hypertension) Status: Acute Plan: - See above. (6) Depression Status: Chronic Plan: - See above. (7) CAD (coronary artery disease) Status: Chronic Assessment and Plan Patient examined. Assessment and plan formulated with Maribeth Valdes PA-C. I agree with the above. Maribeth Valdes Dec 16, 2016 11:[address] DO Dec 26, 2016 22:17
[2016-12-16] MEDS: AZITHROMYCIN INJ 500 MG in SODIUM CHLOR 0.9% 250 ML INJ 250 ML IV SCH (13:54)
[2016-12-16] MEDS: VANCOMYCIN INJ 1,700 MG in SODIUM CHLORID 0.9% 500 ML INJ 500 ML IV SCH (13:54)
[2016-12-16] MEDS: cefTRIAXone INJ 1,000 MG in SODIUM CHLORIDE 0.9% INJ 100 ML IV SCH (13:55)
[2016-12-16] MEDS: ENOXAPARIN SODIUM 40 MG/0.4 ML SYRINGE SQ SCH (17:24)
[2016-12-16] MEDS: ACETAMINOPHEN 325 MG TAB PO PRN (17:24)
[2016-12-16] MEDS: ATORVASTATIN 20 MG TAB PO SCH (22:38)
[2016-12-16] MEDS: GABAPENTIN 300 MG CAP PO SCH (22:38)
[2016-12-17] VITALS (10 sets, daily range): BP systolic 128–152; BP diastolic 70–86; PULSE 78–86; RESP 20–31; TEMP 98.5–99; O2SAT 93–96
[2016-12-17] MEDS: INSULIN NovoLIN REGULAR SUPPLEMENTAL SCALE SQ SCH ×3 (03:00→21:00)
[2016-12-17] MEDS: CHLORHEXIDINE GLUCONATE 2 % 1 PACK (2 CLOTHS) TOP SCH (03:04)
[2016-12-17] MEDS: RESP: ALBUTEROL 2.5 MG/IPRATROPIUM 0.5 MG NEB (SCH) INH ×4 (03:05→19:22)
[2016-12-17] MEDS: RESP: ACETYLCYSTEINE 20% 30 ML NEB NEB SCH ×4 (03:05→19:22)
[2016-12-17 06:12] LABS: AUTOMATED NEUTROPHIL # 6.3 TH/MM3 (1.8-7.7); BASOPHIL % 0.2 % (0.0-2.0); EOSINOPHIL % 0.1 % (0.0-4.0); HEMATOCRIT 43.4 % (39.0-51.0); HEMO FLAGS DIFF FINAL; LYMPH % 9.1 % (9.0-44.0); LYMPHOCYTE # 0.8 TH/MM3 (1.0-4.8); MEAN CORPUSCULAR HEMOGLOBIN 29.8 PG (27.0-34.0); MEAN CORPUSCULAR HGB CONC 33.1 % (32.0-36.0); MONO % 14.5 % (0.0-8.0); NEUT % 76.1 % (16.0-70.0); PLATELET COUNT 145 TH/MM3 (150-450); RED BLOOD COUNT 4.82 MIL/MM3 (4.50-5.90); RED CELL DISTRIBUTION WIDTH 15.1 % (11.6-17.2); WHITE BLOOD COUNT 8.3 TH/MM3 (4.0-11.0)
[2016-12-17 06:37] LABS: BICARBONATE 27.7 MEQ/L (21.0-32.0); MAGNESIUM 2.2 MG/DL (1.5-2.5); POTASSIUM 3.8 MEQ/L (3.5-5.1)
[2016-12-17] MEDS: SODIUM CHLOR 0.9% 1000 ML INJ 1,000 ML IV SCH ×2 (08:00→18:00)
[2016-12-17] MEDS: OSELTAMIVIR PHOSPHATE 75 MG CAP PO SCH ×2 (08:52→23:07)
[2016-12-17] MEDS: SODIUM CHLORIDE 0.9% FLUSH 5 ML FLUSH IV FLUSH SCH ×2 (08:52→23:08)
[2016-12-17] MEDS: DULoxetine HCl DR 60 MG CAP PO SCH (08:52)
[2016-12-17] MEDS: ASPIRIN EC 81 MG TABEC PO SCH (08:52)
[2016-12-17] MEDS: buPROPion HCL 150 MG SUSTAINED RELEASE TAB PO SCH (08:52)
[2016-12-17] MEDS: DOCUSATE SODIUM 50 MG/SENNA 8.6 MG TAB PO SCH ×2 (08:52→23:08)
--- NOTE | 2016-12-17 09:33 | HHI.PR ---
Subjective Remarks Nurse reports that the pt had some confusion last night and removed his clothing and defecated on the floor. This morning pt is alert and oriented x 3 He is sweating quite a bit Still with cough and congestion but feels that he is slightly better. Objective Vitals Vital Signs Date Time Temp Pulse Resp B/P Pulse Ox O2 Delivery O2 Flow Rate FiO2 12/17/16 06:00 80 12/17/16 04:00 78 12/17/16 04:00 99.0 79 28 128/86 93 12/17/16 02:00 80 12/17/16 00:00 79 12/17/16 00:00 98.6 80 21 137/73 94 12/16/16 22:00 78 12/16/16 20:00 98.0 84 24 114/69 94 12/16/16 20:00 84 12/16/16 19:27 94 Nasal Cannula 4.00 12/16/16 16:00 98.1 84 18 147/67 91 12/16/16 12:00 98.7 79 20 128/59 95 12/16/16 12/16/16 12/17/16 15:00 23:00 07:00 Intake Total 1798 ml 472 ml 1151 ml Output Total 750 ml 700 ml 600 ml Balance 1048 ml -228 ml 551 ml Intake Oral 960 ml 120 ml IV Total 838 ml 352 ml 1151 ml Output Urine Total 750 ml 700 ml 600 ml # Bowel Movements 1 1 0 Result Diagram: 12/17/16 0543 12/17/16 0543 Other Results Laboratory Tests Test 12/15/16 12/16/16 12/17/16 14:46 05:52 05:43 Troponin I 0.18 NG/ML White Blood Count 9.5 TH/MM3 8.3 TH/MM3 Red Blood Count 4.88 MIL/MM3 4.82 MIL/MM3 Hemoglobin 14.9 GM/DL 14.4 GM/DL Hematocrit 44.8 % 43.4 % Mean Corpuscular Volume 91.7 FL 90.0 FL Mean Corpuscular Hemoglobin 30.6 PG 29.8 PG Mean Corpuscular Hemoglobin 33.4 % 33.1 % Concent Red Cell Distribution Width 15.3 % 15.1 % Platelet Count 135 TH/MM3 145 TH/MM3 Mean Platelet Volume 10.1 FL 9.0 FL Neutrophils (%) (Auto) 78.1 % 76.1 % Lymphocytes (%) (Auto) 9.7 % 9.1 % Monocytes (%) (Auto) 11.8 % 14.5 % Eosinophils (%) (Auto) 0.1 % 0.1 % Basophils (%) (Auto) 0.3 % 0.2 % Neutrophils # (Auto) 7.4 TH/MM3 6.3 TH/MM3 Lymphocytes # (Auto) 0.9 TH/MM3 0.8 TH/MM3 Monocytes # (Auto) 1.1 TH/MM3 1.2 TH/MM3 Eosinophils # (Auto) 0.0 TH/MM3 0.0 TH/MM3 Basophils # (Auto) 0.0 TH/MM3 0.0 TH/MM3 CBC Comment AUTO DIFF DIFF FINAL Differential Total Cells 100 Counted Neutrophils % (Manual) 59 % Band Neutrophils % 15 % Lymphocytes % 12 % Monocytes % 14 % Neutrophils # (Manual) 7.0 TH/MM3 Differential Comment FINAL DIFF MANUAL Platelet Estimate LOW Platelet Morphology Comment NORMAL Red Cell Morphology Comment NORMAL Sodium Level 137 MEQ/L 139 MEQ/L Potassium Level 3.7 MEQ/L 3.8 MEQ/L Chloride Level 102 MEQ/L 103 MEQ/L Carbon Dioxide Level 25.6 MEQ/L 27.7 MEQ/L Anion Gap 9 MEQ/L 8 MEQ/L Blood Urea Nitrogen 21 MG/DL 17 MG/DL Creatinine 1.49 MG/DL 1.20 MG/DL Estimat Glomerular Filtration 46 ML/MIN 60 ML/MIN Rate Random Glucose 68 MG/DL 83 MG/DL Calcium Level 7.5 MG/DL 7.5 MG/DL Magnesium Level 2.2 MG/DL Imaging Last Impressions Chest X-Ray 12/16/16 0600 Signed Impressions: Service Date/Time: Friday, December 16, 2016 03:27 - CONCLUSION: Developing right base infiltrate Mo Catalan MD Objective Remarks General: NAD, Alert oriented Chest: Coarse breath sounds bilaterally Cardiac: Irregular Abd: +BS, soft ND/NT Ext: No edema A/P Problem List: (1) Pneumonia Status: Acute Plan: - Pt is 71 yo with Influenza B and admitted for Pneumonia, probably some superimposed bacterial PNA and respiratory distress, ana noted from infection/dehydration, and thrombocytopenia most likely related to acute infection. - Pt was admitted to ICU - Tamiflu - Blood cultures (12/14/16) with one out of four cultures growing out gram positive rods - Sputum culture with heavy growth of normal respiratory claudia - Cont. Azithromycin/Ceftriaxone/Vancomycin - Cont nebs. - Cont. Mucomyst - On 12/15 pt had some hypotension and lethargy. Pt was given IVF 1L bolus with some improvement in the BP and pt became more awake. Abilify and Zanaflex stopped. Losartan was stopped on 12/15 - Monitor vitals - BP is stable - Pt is on 4L NC - Pt stable for transfer out of ICU - DVT prophylaxis (2) Influenza B Status: Acute Plan: - See above (3) ANA (acute kidney injury) Status: Acute Plan: - See above - Labs Improved, Cr 1.20 on 12/17 - Monitor (4) Thrombocytopenia Status: Acute Plan: - See above (5) HTN (hypertension) Status: Acute Plan: - See above. (6) Depression Status: Chronic Plan: - See above. (7) CAD (coronary artery disease) Status: Chronic Assessment and Plan Patient examined. Assessment and plan formulated with Maribeth Valdes PA-C. I agree with the above. Maribeth Valdes Dec 17, 2016 09:[address] DO Dec 26, 2016 22:18
[2016-12-17] MEDS ORDERED: PHARMACY ORDERED LAB XX ONE (15:45)
[2016-12-17] MEDS: ENOXAPARIN SODIUM 40 MG/0.4 ML SYRINGE SQ SCH (17:52)
[2016-12-17] MEDS: VANCOMYCIN INJ 1,700 MG in SODIUM CHLORID 0.9% 500 ML INJ 500 ML IV SCH (17:52)
[2016-12-17] MEDS: cefTRIAXone INJ 1,000 MG in SODIUM CHLORIDE 0.9% INJ 100 ML IV SCH (17:53)
[2016-12-17] MEDS: AZITHROMYCIN INJ 500 MG in SODIUM CHLOR 0.9% 250 ML INJ 250 ML IV SCH (17:53)
[2016-12-17] MEDS: REMOVE OLD PATCH TD SCH (17:53)
[2016-12-17] MEDS: fentaNYL 25 MCG/HR PATCH TD SCH (18:00)
[2016-12-17] MEDS: GABAPENTIN 300 MG CAP PO SCH (23:07)
[2016-12-17] MEDS: ATORVASTATIN 20 MG TAB PO SCH (23:07)
[2016-12-18] VITALS (10 sets, daily range): BP systolic 157–171; BP diastolic 79–92; PULSE 73–89; RESP 14–21; TEMP 98–99.4; O2SAT 89–98
[2016-12-18] MEDS: INSULIN NovoLIN REGULAR SUPPLEMENTAL SCALE SQ SCH ×5 (03:00→21:00)
[2016-12-18] MEDS: RESP: ACETYLCYSTEINE 20% 30 ML NEB NEB SCH ×4 (03:01→21:39)
[2016-12-18] MEDS: RESP: ALBUTEROL 2.5 MG/IPRATROPIUM 0.5 MG NEB (SCH) INH ×4 (03:01→21:39)
[2016-12-18] MEDS: CHLORHEXIDINE GLUCONATE 2 % 1 PACK (2 CLOTHS) TOP SCH (04:00)
[2016-12-18] MEDS: SODIUM CHLOR 0.9% 1000 ML INJ 1,000 ML IV SCH ×2 (04:00→14:00)
[2016-12-18] MEDS: VANCOMYCIN 1,500 MG/NS 500 ML IV SCH ×4 (05:32→18:00)
[2016-12-18 05:47] LABS: AUTOMATED NEUTROPHIL # 7.2 TH/MM3 (1.8-7.7); BASOPHIL % 0.3 % (0.0-2.0); EOSINOPHIL % 0.1 % (0.0-4.0); HEMATOCRIT 43.6 % (39.0-51.0); HEMO FLAGS DIFF FINAL; LYMPH % 12.4 % (9.0-44.0); LYMPHOCYTE # 1.2 TH/MM3 (1.0-4.8); MEAN CELL VOLUME 91.5 FL (80.0-100.0); MEAN CORPUSCULAR HEMOGLOBIN 30.8 PG (27.0-34.0); MEAN CORPUSCULAR HGB CONC 33.7 % (32.0-36.0); MONO % 14.8 % (0.0-8.0); NEUT % 72.4 % (16.0-70.0); PLATELET COUNT 178 TH/MM3 (150-450); RED BLOOD COUNT 4.76 MIL/MM3 (4.50-5.90); RED CELL DISTRIBUTION WIDTH 15.3 % (11.6-17.2)
[2016-12-18 06:10] LABS: BICARBONATE 29.2 MEQ/L (21.0-32.0); MAGNESIUM 2.4 MG/DL (1.5-2.5); POTASSIUM 3.3 MEQ/L (3.5-5.1)
[2016-12-18] MEDS: DOCUSATE SODIUM 50 MG/SENNA 8.6 MG TAB PO SCH ×2 (09:00→23:27)
[2016-12-18] MEDS: buPROPion HCL 150 MG SUSTAINED RELEASE TAB PO SCH (09:21)
[2016-12-18] MEDS: ASPIRIN EC 81 MG TABEC PO SCH (09:21)
[2016-12-18] MEDS: DULoxetine HCl DR 60 MG CAP PO SCH (09:21)
[2016-12-18] MEDS: OSELTAMIVIR PHOSPHATE 75 MG CAP PO SCH ×2 (09:21→23:28)
[2016-12-18] MEDS: SODIUM CHLORIDE 0.9% FLUSH 5 ML FLUSH IV FLUSH SCH ×2 (09:21→23:33)
--- NOTE | 2016-12-18 10:23 | HHI.PR ---
Subjective Remarks Nurse reports no acute events overnight Vitals are stable Pt is currently on 3L via NC and maintaining sats Objective Vitals Vital Signs Date Time Temp Pulse Resp B/P Pulse Ox O2 Delivery O2 Flow Rate FiO2 12/18/16 07:33 97 Nasal Cannula 3.00 12/18/16 06:00 74 12/18/16 04:00 75 12/18/16 04:00 98.5 75 19 157/92 89 12/18/16 02:00 73 12/18/16 00:00 98.5 77 14 165/79 98 12/18/16 00:00 77 12/17/16 22:00 80 12/17/16 20:00 86 12/17/16 20:00 98.6 86 31 152/72 95 12/17/16 19:22 96 Nasal Cannula 4.00 12/17/16 12:00 98.5 81 20 139/76 12/17/16 11:37 95 Nasal Cannula 3.00 12/17/16 12/17/16 12/18/16 15:00 23:00 07:00 Intake Total 430 ml 255 ml Output Total 550 ml 250 ml Balance -120 ml 5 ml Intake Oral 60 ml 60 ml IV Total 370 ml 195 ml Output Urine Total 550 ml 250 ml # Bowel Movements 0 1 Result Diagram: 12/18/16 0406 12/18/16 0406 Other Results Laboratory Tests Test 12/17/16 12/17/16 12/18/16 05:43 18:42 04:06 White Blood Count 8.3 TH/MM3 10.0 TH/MM3 Red Blood Count 4.82 MIL/MM3 4.76 MIL/MM3 Hemoglobin 14.4 GM/DL 14.7 GM/DL Hematocrit 43.4 % 43.6 % Mean Corpuscular Volume 90.0 FL 91.5 FL Mean Corpuscular Hemoglobin 29.8 PG 30.8 PG Mean Corpuscular Hemoglobin 33.1 % 33.7 % Concent Red Cell Distribution Width 15.1 % 15.3 % Platelet Count 145 TH/MM3 178 TH/MM3 Mean Platelet Volume 9.0 FL 9.4 FL Neutrophils (%) (Auto) 76.1 % 72.4 % Lymphocytes (%) (Auto) 9.1 % 12.4 % Monocytes (%) (Auto) 14.5 % 14.8 % Eosinophils (%) (Auto) 0.1 % 0.1 % Basophils (%) (Auto) 0.2 % 0.3 % Neutrophils # (Auto) 6.3 TH/MM3 7.2 TH/MM3 Lymphocytes # (Auto) 0.8 TH/MM3 1.2 TH/MM3 Monocytes # (Auto) 1.2 TH/MM3 1.5 TH/MM3 Eosinophils # (Auto) 0.0 TH/MM3 0.0 TH/MM3 Basophils # (Auto) 0.0 TH/MM3 0.0 TH/MM3 CBC Comment DIFF FINAL DIFF FINAL Differential Comment Sodium Level 139 MEQ/L 138 MEQ/L Potassium Level 3.8 MEQ/L 3.3 MEQ/L Chloride Level 103 MEQ/L 98 MEQ/L Carbon Dioxide Level 27.7 MEQ/L 29.2 MEQ/L Anion Gap 8 MEQ/L 11 MEQ/L Blood Urea Nitrogen 17 MG/DL 18 MG/DL Creatinine 1.20 MG/DL 1.22 MG/DL Estimat Glomerular Filtration 60 ML/MIN 58 ML/MIN Rate Random Glucose 83 MG/DL 77 MG/DL Calcium Level 7.5 MG/DL 8.0 MG/DL Magnesium Level 2.2 MG/DL 2.4 MG/DL Vancomycin Level Trough 6.1 MCG/ML Imaging Last Impressions Chest X-Ray 12/16/16 0600 Signed Impressions: Service Date/Time: Friday, December 16, 2016 03:27 - CONCLUSION: Developing right base infiltrate Mo Catalan MD Objective Remarks General: NAD, Alert oriented Chest: Coarse breath sounds bilaterally Cardiac: Irregular Abd: +BS, soft ND/NT Ext: No edema A/P Problem List: (1) Pneumonia Status: Acute Plan: - Pt is 71 yo with Influenza B and admitted for Pneumonia, probably some superimposed bacterial PNA and respiratory distress, ana noted from infection/dehydration, and thrombocytopenia most likely related to acute infection. - Pt was admitted to ICU - Tamiflu - Blood cultures (12/14/16) with one out of four cultures growing out Bacillus sp not anthracis - Sputum culture with heavy growth of normal respiratory claudia - Cont. Azithromycin/Ceftriaxone/Vancomycin - Cont nebs. - Cont. Mucomyst - On 12/15 pt had some hypotension and lethargy. Pt was given IVF 1L bolus with some improvement in the BP and pt became more awake. Abilify and Zanaflex stopped. Losartan was stopped on 12/15 - Monitor vitals - BP is stable - Pt is on 3L NC - Pt stable for transfer out of ICU when bed available - Consider ID consultation - DVT prophylaxis (2) Influenza B Status: Acute Plan: - See above (3) ANA (acute kidney injury) Status: Acute Plan: - See above - Labs Improved, Cr 1.22 on 12/18 - Monitor (4) Thrombocytopenia Status: Acute Plan: - See above (5) HTN (hypertension) Status: Acute Plan: - See above. (6) Depression Status: Chronic Plan: - See above. (7) CAD (coronary artery disease) Status: Chronic Assessment and Plan Patient examined. Assessment and plan formulated with Maribeth Valdes PA-C. I agree with the above. Maribeth Valeds Dec 18, 2016 10:[address] DO Dec 26, 2016 22:18
[2016-12-18] MEDS ORDERED: POTASSIUM CHLORIDE 20 MEQ CONTROLLED RELEASE TAB PO ONE (10:30)
[2016-12-18] MEDS: cefTRIAXone INJ 1,000 MG in SODIUM CHLORIDE 0.9% INJ 100 ML IV SCH (14:50)
[2016-12-18] MEDS: AZITHROMYCIN INJ 500 MG in SODIUM CHLOR 0.9% 250 ML INJ 250 ML IV SCH (14:50)
[2016-12-18] MEDS: ENOXAPARIN SODIUM 40 MG/0.4 ML SYRINGE SQ SCH (18:00)
[2016-12-18] MEDS: GABAPENTIN 300 MG CAP PO SCH (23:27)
[2016-12-18] MEDS: ATORVASTATIN 20 MG TAB PO SCH (23:27)
[2016-12-19] VITALS (9 sets, daily range): BP systolic 151–174; BP diastolic 69–84; PULSE 80–89; RESP 18–22; TEMP 97–98.6; O2SAT 90–97
[2016-12-19] MEDS: cloNIDine HCL 0.1 MG TAB PO PRN ×2 (02:56→23:28)
[2016-12-19] MEDS: INSULIN NovoLIN REGULAR SUPPLEMENTAL SCALE SQ SCH ×5 (02:59→21:00)
[2016-12-19] MEDS: CHLORHEXIDINE GLUCONATE 2 % 1 PACK (2 CLOTHS) TOP SCH (04:00)
[2016-12-19] MEDS: RESP: ACETYLCYSTEINE 20% 30 ML NEB NEB SCH ×2 (04:27→08:50)
[2016-12-19] MEDS: RESP: ALBUTEROL 2.5 MG/IPRATROPIUM 0.5 MG NEB (PRN) INH ×2 (04:27→08:50)
[2016-12-19] MEDS ORDERED: PHARMACY ORDERED LAB XX ONE (05:45)
[2016-12-19] MEDS: VANCOMYCIN 1,500 MG/NS 500 ML IV SCH ×4 (07:13→23:28)
[2016-12-19] MEDS: SODIUM CHLORIDE 0.9% FLUSH 5 ML FLUSH IV FLUSH SCH ×2 (08:59→21:00)
[2016-12-19] MEDS: DOCUSATE SODIUM 50 MG/SENNA 8.6 MG TAB PO SCH ×2 (09:00→21:41)
[2016-12-19] MEDS: DULoxetine HCl DR 60 MG CAP PO SCH (09:00)
[2016-12-19] MEDS: ASPIRIN EC 81 MG TABEC PO SCH (09:00)
[2016-12-19] MEDS: buPROPion HCL 150 MG SUSTAINED RELEASE TAB PO SCH (09:00)
[2016-12-19] MEDS: OSELTAMIVIR PHOSPHATE 75 MG CAP PO SCH (09:00)
[2016-12-19] MEDS: SODIUM CHLOR 0.9% 1000 ML INJ 1,000 ML IV SCH ×3 (10:00→21:41)
[2016-12-19] MEDS: cefTRIAXone INJ 1,000 MG in SODIUM CHLORIDE 0.9% INJ 100 ML IV SCH (11:46)
[2016-12-19] MEDS: AZITHROMYCIN INJ 500 MG in SODIUM CHLOR 0.9% 250 ML INJ 250 ML IV SCH (13:00)
--- NOTE | 2016-12-19 14:23 | HHI.PR ---
Subjective Remarks No new complaints. Objective Vitals Vital Signs Date Time Temp Pulse Resp B/P Pulse Ox O2 Delivery O2 Flow Rate FiO2 12/19/16 12:30 98.3 81 20 163/79 95 12/19/16 09:07 98.5 80 22 174/84 93 12/19/16 08:52 94 Nasal Cannula 3.00 12/19/16 04:29 90 21 12/19/16 04:00 97.6 89 18 160/79 96 12/19/16 00:00 98.6 81 18 162/69 97 12/18/16 21:49 94 Nasal Cannula 3.00 12/18/16 20:00 98.6 85 18 158/85 96 12/18/16 17:00 99.4 78 19 162/90 93 12/18/16 12/18/16 12/19/16 15:00 23:00 07:00 Intake Total 480 ml 240 ml 1534 ml Output Total 450 ml 250 ml 600 ml Balance 30 ml -10 ml 934 ml Intake Oral 480 ml 240 ml 240 ml IV Total 1294 ml Output Urine Total 450 ml 250 ml 600 ml # Bowel Movements 1 0 0 Result Diagram: 12/18/16 0406 12/18/16 0406 Imaging Last Impressions Chest X-Ray 12/16/16 0600 Signed Impressions: Service Date/Time: Friday, December 16, 2016 03:27 - CONCLUSION: Developing right base infiltrate Mo Catalan MD Objective Remarks General: NAD, Alert oriented Chest: Coarse breath sounds bilaterally Cardiac: Irregular Abd: +BS, soft ND/NT Ext: No edema A/P Problem List: (1) Pneumonia Status: Acute Plan: - Pt is 71 yo with Influenza B and admitted for Pneumonia, probably some superimposed bacterial PNA and respiratory distress, ana noted from infection/dehydration, and thrombocytopenia most likely related to acute infection. - Pt was admitted to ICU, 12/14- 12/18/16 - Tamiflu (12/14-12/19) - Blood cultures (12/14/16) with one out of four cultures growing out Bacillus sp not anthracis - Sputum culture with heavy growth of normal respiratory claudia - Cont. Azithromycin/Ceftriaxone/Vancomycin - Cont nebs. - On 12/15 pt had some hypotension and lethargy. Pt was given IVF 1L bolus with some improvement in the BP and pt became more awake. Abilify and Zanaflex stopped. Losartan was stopped on 12/15 - pt continues to require 3L NC - continue current antibiotic regimen for now - repeat CXR in AM - DVT prophylaxis (2) Influenza B Status: Acute Plan: - See above (3) ANA (acute kidney injury) Status: Acute Plan: - See above - Labs Improved, Cr 1.22 on 12/18 - Monitor (4) Thrombocytopenia Status: Acute Plan: - See above (5) HTN (hypertension) Status: Acute Plan: - See above. (6) Depression Status: Chronic Plan: - See above. (7) CAD (coronary artery disease) Status: Chronic Faustino Way DO Dec 19, 2016 14:23
[2016-12-19] MEDS ORDERED: POTASSIUM CHLORIDE 20 MEQ CONTROLLED RELEASE TAB PO ONE (15:00)
[2016-12-19] MEDS: LOSARTAN 50 MG TAB PO SCH (16:04)
[2016-12-19] MEDS: ENOXAPARIN SODIUM 40 MG/0.4 ML SYRINGE SQ SCH (17:57)
[2016-12-19] MEDS: GABAPENTIN 300 MG CAP PO SCH (21:40)
[2016-12-19] MEDS: ATORVASTATIN 20 MG TAB PO SCH (21:41)
[2016-12-20] VITALS: BP 180/90; PULSE 80; RESP 18; TEMP 97.6; O2SAT 94
[2016-12-20] MEDS: INSULIN NovoLIN REGULAR SUPPLEMENTAL SCALE SQ SCH ×6 (03:00→23:20)
[2016-12-20 04:00] VITALS: BP 162/86; PULSE 75; RESP 19; TEMP 98.6; O2SAT 94
[2016-12-20] MEDS: CHLORHEXIDINE GLUCONATE 2 % 1 PACK (2 CLOTHS) TOP SCH (04:00)
[2016-12-20] MEDS: SODIUM CHLOR 0.9% 1000 ML INJ 1,000 ML IV SCH ×3 (06:47→21:27)
[2016-12-20 08:00] VITALS: BP 181/82; PULSE 72; RESP 18; TEMP 99; O2SAT 96
[2016-12-20] MEDS: SODIUM CHLORIDE 0.9% FLUSH 5 ML FLUSH IV FLUSH SCH ×2 (09:00→21:27)
[2016-12-20] MEDS: DOCUSATE SODIUM 50 MG/SENNA 8.6 MG TAB PO SCH ×2 (09:12→21:27)
[2016-12-20] MEDS: DULoxetine HCl DR 60 MG CAP PO SCH (09:12)
[2016-12-20] MEDS: LOSARTAN 50 MG TAB PO SCH (09:12)
[2016-12-20] MEDS: buPROPion HCL 150 MG SUSTAINED RELEASE TAB PO SCH (09:12)
[2016-12-20] MEDS: ASPIRIN EC 81 MG TABEC PO SCH (09:12)
--- NOTE | 2016-12-20 09:51 | RADRPT ---
EXAM DATE/TIME: 12/20/2016 09:26 [facility] COMPARISON: CHEST SINGLE AP, December 16, 2016, 3:27. INDICATIONS: Short of breath. MEDICAL HISTORY: Hypertension. Pneumonia. SURGICAL HISTORY: CABG. ENCOUNTER: Subsequent ACUITY: 4 - 6 days PAIN SCORE: 0/10 LOCATION: Bilateral chest FINDINGS: Heart remains enlarged. Pulmonary vascularity is normal. Very minimal blunting is seen in both the right and left costophrenic sulci. Overall compared to 12/16 there is interval improvement with less interstitial changes. CONCLUSION: Interval improvement. Orestes Uriostegui MD FACR on December 20, 2016 at 9:42 Board Certified Radiologist. This report was verified electronically.
[2016-12-20] MEDS: cefTRIAXone INJ 1,000 MG in SODIUM CHLORIDE 0.9% INJ 100 ML IV SCH (11:56)
[2016-12-20 12:00] VITALS: BP 177/92; PULSE 81; RESP 18; TEMP 98.3; O2SAT 90
[2016-12-20] MEDS: AZITHROMYCIN INJ 500 MG in SODIUM CHLOR 0.9% 250 ML INJ 250 ML IV SCH (13:53)
[2016-12-20 16:00] VITALS: BP 171/88; PULSE 78; RESP 18; TEMP 98; O2SAT 92
[2016-12-20] MEDS: cloNIDine HCL 0.1 MG TAB PO PRN (16:06)
--- NOTE | 2016-12-20 16:08 | HHI.PR ---
Subjective Remarks No new complaints. Objective Vitals Vital Signs Date Time Temp Pulse Resp B/P Pulse Ox O2 Delivery O2 Flow Rate FiO2 12/20/16 12:00 98.3 81 18 177/92 90 12/20/16 08:00 99.0 72 18 181/82 96 12/20/16 04:00 98.6 75 19 162/86 94 12/20/16 00:00 97.6 80 18 180/90 94 12/19/16 20:00 97.6 89 19 151/69 94 12/19/16 17:57 94 21 12/19/16 17:32 97.0 87 22 94 12/19/16 12/19/16 12/20/16 15:00 23:00 07:00 Intake Total 500 ml 1221 ml 1303 ml Output Total 800 ml 600 ml Balance 500 ml 421 ml 703 ml Intake Oral 360 ml 240 ml IV Total 500 ml 861 ml 1063 ml Output Urine Total 800 ml 600 ml # Bowel Movements 0 0 Result Diagram: 12/18/16 0406 12/18/16 0406 Imaging Last Impressions Chest X-Ray 12/16/16 0600 Signed Impressions: Service Date/Time: Friday, December 16, 2016 03:27 - CONCLUSION: Developing right base infiltrate Mo Catalan MD Objective Remarks General: NAD, Alert oriented Chest: improved air movement from earlier in the week Cardiac: Irregular Abd: +BS, soft ND/NT Ext: No edema A/P Problem List: (1) Pneumonia Status: Acute Plan: - Pt is 71 yo with Influenza B and admitted for Pneumonia, probably some superimposed bacterial PNA and respiratory distress, ana noted from infection/dehydration, and thrombocytopenia most likely related to acute infection. - Pt was admitted to ICU, 12/14- 12/18/16 - Tamiflu (12/14-12/19) - Blood cultures (12/14/16) with one out of four cultures growing out Bacillus sp not anthracis - Sputum culture with heavy growth of normal respiratory claudia - Cont. Azithromycin/Ceftriaxone/Vancomycin - Cont nebs. - On 12/15 pt had some hypotension and lethargy. Pt was given IVF 1L bolus with some improvement in the BP and pt became more awake. Abilify and Zanaflex stopped. Losartan was stopped on 12/15 (resumed) - pt continues to require 3L NC - continue current antibiotic regimen for now - Case d/w ID, Dr. Neil, she will consult - CXR (12/20/16) --> decreased infiltrates - repeat CXR in AM - DVT prophylaxis (2) Influenza B Status: Acute Plan: - See above (3) ANA (acute kidney injury) Status: Acute Plan: - See above - Labs Improved, Cr 1.22 on 12/18 - Monitor (4) Thrombocytopenia Status: Acute Plan: - See above (5) HTN (hypertension) Status: Acute Plan: - See above. (6) Depression Status: Chronic Plan: - See above. (7) CAD (coronary artery disease) Status: Chronic Faustino Way DO Dec 20, 2016 16:08
[2016-12-20] MEDS: REMOVE OLD PATCH TD SCH (18:00)
[2016-12-20] MEDS: fentaNYL 25 MCG/HR PATCH TD SCH (18:12)
[2016-12-20] MEDS: VANCOMYCIN 1,500 MG/NS 500 ML IV SCH ×2 (18:15)
[2016-12-20] MEDS: ENOXAPARIN SODIUM 40 MG/0.4 ML SYRINGE SQ SCH (18:15)
[2016-12-20 20:00] VITALS: BP 131/61; PULSE 60; PULSE 71; RESP 18; TEMP 97.4; O2SAT 96
[2016-12-20] MEDS: GABAPENTIN 300 MG CAP PO SCH (21:27)
[2016-12-20] MEDS: ATORVASTATIN 20 MG TAB PO SCH (21:27)
[2016-12-21] VITALS: BP_SYST 147; BP_SYST 81; BP_DIAS 81; PULSE 79; RESP 20; TEMP 98.8; O2SAT 92
[2016-12-21] MEDS: CHLORHEXIDINE GLUCONATE 2 % 1 PACK (2 CLOTHS) TOP SCH (02:29)
[2016-12-21] MEDS: INSULIN NovoLIN REGULAR SUPPLEMENTAL SCALE SQ SCH ×4 (06:11→19:51)
[2016-12-21 08:00] VITALS: BP 162/89; PULSE 76; RESP 20; TEMP 97.5; O2SAT 92
[2016-12-21] MEDS: DOCUSATE SODIUM 50 MG/SENNA 8.6 MG TAB PO SCH ×2 (09:00→19:48)
[2016-12-21] MEDS: SODIUM CHLORIDE 0.9% FLUSH 5 ML FLUSH IV FLUSH SCH ×2 (09:00→19:46)
[2016-12-21] MEDS: ASPIRIN EC 81 MG TABEC PO SCH (09:08)
[2016-12-21] MEDS: buPROPion HCL 150 MG SUSTAINED RELEASE TAB PO SCH (09:09)
[2016-12-21] MEDS: LOSARTAN 50 MG TAB PO SCH ×2 (09:09→19:48)
[2016-12-21] MEDS: DULoxetine HCl DR 60 MG CAP PO SCH (09:09)
--- NOTE | 2016-12-21 10:28 | RADRPT ---
EXAM DATE/TIME: 12/21/2016 09:43 [facility] COMPARISON: CHEST SINGLE AP, December 16, 2016, 3:27. CHEST PA & LAT, December 20, 2016, 9:26. INDICATIONS : Short of breath. MEDICAL HISTORY : Cardiovascular disease. SURGICAL HISTORY : Fusion, lumbar. CABG. ENCOUNTER: Initial ACUITY: 3 days PAIN SCORE: 2/10 LOCATION: Bilateral chest FINDINGS: AP and lateral views of the chest demonstrate a normal-sized cardiac silhouette in this patient post median sternotomy. Lungs are mildly underinflated and there are bilateral pleural based opacities bes t visualized on the lateral view. These have slightly increased in size from yesterday's examination. No pneumothorax is visualized. Bones demonstrate no acute finding. CONCLUSION: There are small bilateral pleural effusions with associated compressive atelectasis. These have sligh tly increased from yesterday's examination. Mo Ernandez MD on December 21, 2016 at 10:25 Board Certified Radiologist. This report was verified electronically.
[2016-12-21 12:00] VITALS: BP 188/94; PULSE 79; RESP 20; TEMP 98.4; O2SAT 90
[2016-12-21] MEDS: SODIUM CHLOR 0.9% 1000 ML INJ 1,000 ML IV SCH ×2 (13:00→19:51)
[2016-12-21] MEDS: cloNIDine HCL 0.1 MG TAB PO PRN (13:00)
[2016-12-21] MEDS: AZITHROMYCIN INJ 500 MG in SODIUM CHLOR 0.9% 250 ML INJ 250 ML IV SCH (13:01)
[2016-12-21] MEDS: cefTRIAXone INJ 1,000 MG in SODIUM CHLORIDE 0.9% INJ 100 ML IV SCH (13:01)
[2016-12-21] MEDS: VANCOMYCIN 1,500 MG/NS 500 ML IV SCH ×2 (13:01)
[2016-12-21] MEDS: ACETAMINOPHEN 325 MG TAB PO PRN (13:02)
[2016-12-21 16:00] VITALS: BP 166/89; PULSE 78; RESP 19; TEMP 97.2; O2SAT 92
--- NOTE | 2016-12-21 17:11 | PD.ID.CON ---
History of Present Illness Service ID Consult Requested By Reason for Consult Evaluation and Mment of Flu and secondary Pneumonia Primary Care Physician Gen Denton MD Diagnoses: History of Present Illness is a 71-year-old male with a history of hypertension, coronary disease with prior [place] in his mid 40s, 4 vessel CABG in his 60s, who initially presented to an urgent care center with fever, cough, congestion and was diagnosed with influenza and given an antiviral at that time. He re-presented to the [facility] emergency department with similar symptoms, but altered mental status and hypotension with lactic acidosis. He again test positive for influenza B. Of note, he did get the influenza vaccine approximately 4 months ago. He was given 3 L normal saline and his hypotension resolved. He is transferred to the [facility] intensive care unit for evaluation and management of severe sepsis secondary to influenza pneumonia. BCX drawn on admission positive for GPC and Sec Bacterial pneumonia. ID consulted for these reasons Review of Systems ROS Limitations: Hearing Impaired, Poor Historian Past Family Social History Allergies: Coded Allergies: Penicillin (Verified Allergy, Severe, Rash, 12/14/16) Past Medical History Arthritis Anxiety Depression Skin cancer Prior cardiac catheterization History of acute [place] in his 40s Hypertension Hyperlipidemia Congestive heart failure Coronary artery disease Diminished hearing Kidney stones Chronic back pain Remote history of concussions Past Surgical History Appendectomy at age 12 Four-vessel CABG in his 60s Urethral dilation Sinus surgery Reported Medications Reported Meds & Active Scripts Active Cleocin (Clindamycin HCl) 150 Mg Cap 300 Mg PO Q6HR Losartan (Losartan Potassium) 50 Mg Tab 50 Mg PO BID Reported Cymbalta DR (Duloxetine HCl) 60 Mg Capdr 60 Mg PO DAILY Tizanidine (Tizanidine HCl) 4 Mg Cap 4 Mg PO BID Wellbutrin Xl 24 HR (Bupropion HCl) 150 Mg Tab 150 Mg PO DAILY Lipitor (Atorvastatin Calcium) 20 Mg Tab 20 Mg PO HS Aspirin 81 (Aspirin) 81 Mg Tabdr 81 Mg PO DAILY Fentanyl Patch 72 HR (Fentanyl) 12 Mcg/Hr Patch 25 Mcg T-DERMAL Q72H Remove old patch when new one placed. Celebrex (Celecoxib) 200 Mg Cap 200 Mg PO DAILY Gabapentin 300 Mg Cap 300 Mg PO HS Active Ordered Medications Current Medications Medications (Trade) Dose Ordered Sig/Radha Route Start Time Stop Time Status Last Admin (D50w (Vial) Inj) 25 ml UNSCH PRN IV PUSH 1/14/17 17:00 (NS Flush) 2 ml UNSCH PRN IV FLUSH 12/14/16 17:00 (NS Flush) 2 ml BID IV FLUSH 12/14/16 21:00 12/20/16 21:27 (Zofran Inj) 4 mg Q6H PRN IV 12/14/16 17:00 (Mary Carmen-Colace) 2 tab BID PO 12/14/16 21:00 12/21/16 19:48 (Lovenox Inj) 40 mg Q24H SQ 12/14/16 18:00 12/21/16 17:20 Miscellaneous Information 1 Q361D XX 12/14/16 17:00 (Chlorhexidine 2% Cloth) Taper DAILY@04 TOP 12/15/16 04:00 12/11/17 03:59 12/18/16 04:00 (Chlorhexidine 2% Cloth) 3 pack UNSCH PRN TOP 12/14/16 17:00 (Tylenol) 650 mg Q6H PRN PO 12/14/16 17:15 12/21/16 13:02 (Ecotrin Ec) 81 mg DAILY PO 12/15/16 09:00 12/21/16 09:08 (Lipitor) 20 mg HS PO 12/14/16 21:00 12/21/16 19:48 (Wellbutrin Sr) 150 mg DAILY PO 12/15/16 09:00 12/21/16 09:09 (Cymbalta Dr) 60 mg DAILY PO 12/15/16 09:00 12/21/16 09:09 (Neurontin) 300 mg HS PO 12/14/16 21:00 12/21/16 19:48 (Duragesic 25 Mcg Patch.72 Hr) 25 patch Q3D TD 12/14/16 18:00 12/20/16 18:12 Miscellaneous Information 1 Q3D TD 12/17/16 18:00 12/20/16 18:00 Clonidine 0.1 mg 0.1 mg Q4H PRN PO 12/15/16 09:00 12/21/16 13:00 (NS 1000 ml Inj) 1,000 ml @ 100 mls/hr Q10H IV 12/15/16 16:00 12/21/16 19:51 (Cozaar) 50 mg BID PO 12/21/16 21:00 12/21/16 19:48 (Cleocin) 300 mg Q6HR PO 12/21/16 18:00 12/21/16 18:08 Family History reviewed Social History Denies alcohol, smoking, IVDA. Physical Exam Vital Signs Vital Signs Date Time Temp Pulse Resp B/P Pulse Ox O2 Delivery O2 Flow Rate FiO2 12/21/16 16:00 97.2 78 19 166/89 92 12/21/16 12:00 98.4 79 20 188/94 90 12/21/16 08:00 97.5 76 20 162/89 92 12/21/16 00:00 98.8 79 20 147/81 92 12/20/16 20:00 12/20/16 20:00 97.4 71 18 131/61 96 Physical Exam GENERAL: This is a well-nourished, well-developed patient, in no apparent distress. SKIN: No rashes, ecchymoses or lesions. Cool and dry. HEAD: Atraumatic. Normocephalic. No temporal or scalp tenderness. EYES: Pupils equal round and reactive. Extraocular motions intact. No scleral icterus. No injection or drainage. ENT: Nose without bleeding, purulent drainage or septal hematoma. Throat without erythema, tonsillar hypertrophy or exudate. Uvula midline. Airway patent. NECK: Trachea midline. Supple, nontender, no meningeal signs. CARDIOVASCULAR: HS audible. RESPIRATORY: Clear to auscultation. Breath sounds equal bilaterally. GASTROINTESTINAL: Abdomen soft, non-tender, nondistended. MUSCULOSKELETAL: Extremities without clubbing, cyanosis, or edema. No joint tenderness, effusion, or edema noted. No calf tenderness. Negative Homans sign bilaterally. NEUROLOGICAL: Awake and alert. Grossly non focal Psych: cooperative IV line sites with no e.o infection. Laboratory Date/Time Procedure Status Source Growth 12/21/16 10:57 Aerobic Blood Culture Received Blood Peripheral Pending 12/21/16 10:57 Anaerobic Blood Culture Received Blood Peripheral Pending Result Diagram: 12/18/16 0406 12/18/16 0406 Imaging Last Impressions Chest X-Ray 12/21/16 0800 Signed Impressions: Service Date/Time: Wednesday, December 21, 2016 09:43 - CONCLUSION: There are small bilateral pleural effusions with associated compressive atelectasis. These have slightly increased from yesterday's examination. Mo Ernandez MD Assessment and Plan Assessment and Plan Flu type B treated Secondary bacterial pneumonia (MSSA, Strep and CA-MRSA) Depression on Cymbalta. Cannot use Zyvox. Hard of hearing. Recs DC Ceftriaxone DC Vanco IV DC Azithro Start oral Clinda total of 7 more days. Wool Carder pt to test for Cdiff if diarrhea develops. [email or web address] Will sign off please call back if any change in clinical condition or questions. Tanesha Neil MD Dec 21, 2016 17:11
[2016-12-21] MEDS: ENOXAPARIN SODIUM 40 MG/0.4 ML SYRINGE SQ SCH (17:20)
--- NOTE | 2016-12-21 17:24 | HHI.PR ---
Subjective Remarks No new complaints. Objective Vitals Vital Signs Date Time Temp Pulse Resp B/P Pulse Ox O2 Delivery O2 Flow Rate FiO2 12/21/16 16:00 97.2 78 19 166/89 92 12/21/16 12:00 98.4 79 20 188/94 90 12/21/16 08:00 97.5 76 20 162/89 92 12/21/16 00:00 98.8 79 20 147/81 92 12/20/16 20:00 12/20/16 20:00 97.4 71 18 131/61 96 12/20/16 12/20/16 12/21/16 15:00 23:00 07:00 Intake Total 457 ml 1016 ml 869 ml Output Total 400 ml 1200 ml Balance 457 ml 616 ml -331 ml Intake Oral 240 ml 120 ml IV Total 457 ml 776 ml 749 ml Output Urine Total 400 ml 1200 ml # Bowel Movements 1 0 Result Diagram: 12/18/16 0406 12/18/16 0406 Imaging Last Impressions Chest X-Ray 12/16/16 0600 Signed Impressions: Service Date/Time: Friday, December 16, 2016 03:27 - CONCLUSION: Developing right base infiltrate Mo Catalan MD Objective Remarks General: NAD, Alert oriented Chest: clear x b/l Cardiac: Irregular Abd: +BS, soft ND/NT Ext: No edema A/P Problem List: (1) Pneumonia Status: Acute Plan: - Pt is 71 yo with Influenza B and admitted for Pneumonia, probably some superimposed bacterial PNA and respiratory distress, ana noted from infection/dehydration, and thrombocytopenia most likely related to acute infection. - Pt was admitted to ICU, 12/14- 12/18/16 - Tamiflu (12/14-12/19) - Blood cultures (12/14/16) with one out of four cultures growing out Bacillus sp not anthracis, likely contaminant - Sputum culture with heavy growth of normal respiratory claudia - Cont. Azithromycin/Ceftriaxone/Vancomycin - Cont nebs. - On 12/15 pt had some hypotension and lethargy. Pt was given IVF 1L bolus with some improvement in the BP and pt became more awake. Abilify and Zanaflex stopped. Losartan was stopped on 12/15 (resumed) - pt continues to require 3L NC - continue current antibiotic regimen for now - Case d/w ID, Dr. Neil, she will consult - CXR (12/21/16) --> b/l small pleural effusion - repeat CXR in AM - anticipate d/c home with [facility] 12/22/16 - await final antibiotic recommendations from ID - DVT prophylaxis (2) Influenza B Status: Acute Plan: - See above (3) ANA (acute kidney injury) Status: Acute Plan: - See above - Labs Improved, Cr 1.22 on 12/18 - Monitor (4) Thrombocytopenia Status: Acute Plan: - See above (5) HTN (hypertension) Status: Acute Plan: - See above. (6) Depression Status: Chronic Plan: - See above. (7) CAD (coronary artery disease) Status: Chronic Faustino Way DO Dec 21, 2016 17:24
--- NOTE | 2016-12-21 17:25 | HHI.FF ---
Face to Face Verification Diagnosis: (1) ANA (acute kidney injury) (2) Influenza B (3) HTN (hypertension) (4) Pneumonia (5) CAD (coronary artery disease) Physical Therapy Order: Evaluate and Treat, Improve ambulation, Strength and gait training Home Health Nursing Order: Medical education Signs/symptoms of disease process Oxygen administration education Medication education-adverse effect Nursing assessment with vital signs I have seen patient Domingo Harris on 12/21/16. My clinical findings support the need for the requested home health care services because: Ltd mobility - disease progression Patient has SOB Deconditioned w/ increased weakness Med compliance is questionable Limited ability to care for self Need for psychosocial assistance Impaired cognition/judgement I certify that my clinical findings support that this patient is homebound because: Impaired cognitive ability/safety Unsteady gait/balance Unsafe to leave home unassisted Need for psychosocial assistance Unable to use public transportation Faustino Way DO Dec 21, 2016 17:25
[2016-12-21] MEDS ORDERED: CLIN150 PO (17:43)
[2016-12-21] MEDS ORDERED: LOSA50TA PO (17:43)
--- NOTE | 2016-12-21 17:45 | HHI.DS ---
Discharge Summary Admission Date Dec 14, 2016 at 14:35 Admitting Diagnosis sepsis, influenza B (1) Pneumonia Diagnosis: Principal (2) Influenza B Diagnosis: Principal (3) ANA (acute kidney injury) Diagnosis: Principal (4) Thrombocytopenia Diagnosis: Secondary (5) HTN (hypertension) Diagnosis: Secondary (6) Depression Diagnosis: Secondary (7) CAD (coronary artery disease) Diagnosis: Secondary Consultants Dr. Maya Neil, Infectious Disease Brief History This is a 71-year-old male with a history of hypertension, coronary disease with prior [place] in his mid 40s, 4 vessel CABG in his 60s, who initially presented to an urgent care center with fever, cough, congestion and was diagnosed with influenza and given an antiviral at that time. He re-presented to the [facility] emergency department with similar symptoms, but altered mental status and hypotension with lactic acidosis. He again test positive for influenza B. Of note, he did get the influenza vaccine approximately 4 months ago. He was given 3 L normal saline and his hypotension resolved. He is transferred to the [facility] intensive care unit for evaluation and management of severe sepsis secondary to influenza pneumonia. CBC/BMP: 12/18/16 0406 12/18/16 0406 Imaging Last Impressions Chest X-Ray 12/21/16 0800 Signed Impressions: Service Date/Time: Friday, December 21, 2016 09:43 - CONCLUSION: There are small bilateral pleural effusions with associated compressive atelectasis. These have slightly increased from yesterday's examination. Mo Ernandez MD PE at Discharge General: NAD, Alert oriented Chest: clear x b/l Cardiac: Irregular Abd: +BS, soft ND/NT Ext: No edema Hospital Course (1) Pneumonia Status: Acute Plan: - Pt is 71 yo with Influenza B and admitted for Pneumonia, probably some superimposed bacterial PNA and respiratory distress, ana noted from infection/dehydration, and thrombocytopenia most likely related to acute infection. - Pt was admitted to ICU, 12/14- 12/18/16 - Tamiflu (12/14-12/19) - Blood cultures (12/14/16) with one out of four cultures growing out Bacillus sp not anthracis, likely contaminant - Sputum culture with heavy growth of normal respiratory claudia - Cont. Azithromycin/Ceftriaxone/Vancomycin (12/15 - 12/21/16) - abx changed by ID, Dr. Neil, to clindamycin 300mg q6h x 7d - obtain walk test - pt continues to require 3L NC - discharge to home in AM with HHC and home oxygen (2) Influenza B Status: Acute Plan: - See above (3) ANA (acute kidney injury) Status: Acute Plan: - See above - Labs Improved, Cr 1.22 on 12/18 - Monitor (4) Thrombocytopenia Status: Acute Plan: - See above (5) HTN (hypertension) Status: Acute Plan: - See above. (6) Depression Status: Chronic Plan: - See above. (7) CAD (coronary artery disease) Status: Chronic Pt Condition on Discharge: Stable Discharge Disposition: Disch w/ Home Health Serv Discharge Instructions DIET: Follow Instructions for: Heart Healthy Diet Activities you can perform: Weight Bearing as Augustin Other Activity Instructions: NO weight lifting or horse back riding for the next 2 weeks Follow up Referrals: PCP Follow-up - [address] Gen Denton New Medications: Clindamycin (Cleocin) 150 Mg Cap 300 MG PO Q6HR pneumnia #28 Ref 0 CAP Changed Medications: Losartan (Losartan) 50 Mg Tab 50 MG PO BID Blood Pressure Management #30 Ref 0 TAB (Changed from: DAILY) Continued Medications: Aspirin DR (Aspirin 81) 81 Mg Tabdr 81 MG PO DAILY Ref 0 TAB Atorvastatin (Lipitor) 20 Mg Tab 20 MG PO HS Cholesterol Management #30 Ref 0 TAB Bupropion HCl ER 24 HR (Wellbutrin Xl 24 HR) 150 Mg Tab 150 MG PO DAILY Control Depression Ref [address] (Cymbalta DR) 60 Mg Capdr 60 MG PO DAILY #30 Ref 0 CAP Fentanyl Patch 72 HR (Fentanyl Patch 72 HR) 12 Mcg/Hr Patch 25 MCG T-DERMAL Q72H Remove old patch when new one placed. Pain Management #10 Ref 0 PATCH Gabapentin (Gabapentin) 300 Mg Cap 300 MG PO HS #30 Ref 0 CAP Tizanidine (Tizanidine) 4 Mg Cap 4 MG PO BID Muscle Spasm Ref 0 CAP Discontinued Medications: Celecoxib (Celebrex) 200 Mg Cap 200 MG PO DAILY Pain Management Ref [address] DO Dec 21, 2016 17:[address] DO Dec 21, 2016 17:45
[2016-12-21] MEDS ORDERED: OXYGENTANK NAS.CANULA (17:49)
--- NOTE | 2016-12-21 17:51 | HHI.DCPOC ---
Discharge Care Plan Diagnosis: (1) Influenza B (2) Pneumonia (3) ANA (acute kidney injury) (4) HTN (hypertension) (5) Depression (6) CAD (coronary artery disease) (7) Thrombocytopenia Goals to Promote Your Health * To prevent worsening of your condition and complications * To maintain your health at the optimal level Directions to Meet Your Goals Take your medications as prescribed Follow your dietary instruction Follow activity as directed Keep your appointments as scheduled Take your immunizations and boosters as scheduled If your symptoms worsen call your PCP, if no PCP go to Urgent Care Center or Emergency Room Smoking is Dangerous to Your Health. Avoid second hand smoke Call the 24-hour hour crisis hotline for domestic abuse at Faustino [address] DO Dec 21, 2016 17:51
[2016-12-21] MEDS: CLINDAMYCIN 150 MG CAP PO SCH ×2 (18:08→23:35)
[2016-12-21] MEDS: GABAPENTIN 300 MG CAP PO SCH (19:48)
[2016-12-21] MEDS: ATORVASTATIN 20 MG TAB PO SCH (19:48)
[2016-12-21 20:00] VITALS: BP 128/86; PULSE 81; RESP 20; TEMP 98.1; O2SAT 95
[2016-12-22] VITALS: BP 164/87; PULSE 79; RESP 20; TEMP 96.9; O2SAT 92
[2016-12-22] MEDS: INSULIN NovoLIN REGULAR SUPPLEMENTAL SCALE SQ SCH ×4 (03:00→15:30)
[2016-12-22] MEDS: CHLORHEXIDINE GLUCONATE 2 % 1 PACK (2 CLOTHS) TOP SCH (04:00)
[2016-12-22] MEDS: SODIUM CHLOR 0.9% 1000 ML INJ 1,000 ML IV SCH (04:51)
[2016-12-22] MEDS: CLINDAMYCIN 150 MG CAP PO SCH ×2 (04:53→11:45)
[2016-12-22] MEDS ORDERED: PHARMACY ORDERED LAB XX ONE (05:45)
[2016-12-22] MEDS: SODIUM CHLORIDE 0.9% FLUSH 5 ML FLUSH IV FLUSH SCH (07:25)
[2016-12-22 08:00] VITALS: BP 172/80; PULSE 75; RESP 20; TEMP 96.5; O2SAT 95
[2016-12-22] MEDS: DOCUSATE SODIUM 50 MG/SENNA 8.6 MG TAB PO SCH (09:00)
[2016-12-22] MEDS: buPROPion HCL 150 MG SUSTAINED RELEASE TAB PO SCH (09:23)
[2016-12-22] MEDS: DULoxetine HCl DR 60 MG CAP PO SCH (09:23)
[2016-12-22] MEDS: LOSARTAN 50 MG TAB PO SCH (09:23)
[2016-12-22] MEDS: ASPIRIN EC 81 MG TABEC PO SCH (09:23)
[2016-12-22 12:00] VITALS: BP 165/95; PULSE 83; RESP 20; TEMP 98.5; O2SAT 96
[2016-12-22] MEDS ORDERED: NIFEdipine 30 MG SUSTAINED RELEASE TAB PO SCH (12:30)
[2016-12-22] MEDS ORDERED: NIFE30TA8 PO (13:30)
[2016-12-22 13:46] VITALS: BP 169/96; PULSE 78; RESP 18; TEMP 98.8; O2SAT 95
[2016-12-22] MEDS: cloNIDine HCL 0.1 MG TAB PO PRN (15:33)
[2016-12-22 16:00] VITALS: BP 196/93; PULSE 78; RESP 20; TEMP 97.3; O2SAT 95
[2016-12-23] MEDS ORDERED: ACET500C PO (19:05)
== END 2016-12-22 18:48 | disposition home health service (06) | DRG 871 ==
LOC: PHED 12:05 → PHEDA 14:35 → HIME 16:50 → N07A 12-18 16:14
PROVIDERS: ADMIT Hospitalist; ATTEND Hospitalist
DX: R65.20 Severe sepsis without septic shock (principal); J10.08 Influenza due to other identified influenza virus with other specified pneumonia; I21.4 Non-ST elevation (NSTEMI) myocardial infarction; J85.1 Abscess of lung with pneumonia; N17.9 Acute kidney failure, unspecified; E87.2 Acidosis; D69.6 Thrombocytopenia, unspecified; J15.9 Unspecified bacterial pneumonia; I50.9 Heart failure, unspecified; E86.0 Dehydration; J10.1 Influenza due to other identified influenza virus with other respiratory manifestations; I10 Essential (primary) hypertension; F32.9 Major depressive disorder, single episode, unspecified; I25.10 Atherosclerotic heart disease of native coronary artery without angina pectoris; Z95.1 Presence of aortocoronary bypass graft; E78.5 Hyperlipidemia, unspecified; M62.838 Other muscle spasm; I95.9 Hypotension, unspecified
CPT/HCPCS: 71010; 71020; 76937; 80048; 80053; 80202; 82550; 82552; 82565; 82948; 83605; 83735; 84484; 85007; 85025; 85027; 85610; 85730; 87040; 87070; 87205; 87641; 87804; 93005; 94150; 94620; 94640; 94664; 94667; 94668; 96361; 96365; 96375; J0456; J0696; J1650; J3370; J7030; J7040; J7050; J7608

== ENCOUNTER 2016-12-23 15:45 | Emergency (ER) | payer MEDICARE ==
[~2016-12-23] VITALS: Ht 177.8 cm; Wt 90.1 kg
[~2016-12-23 15:45] MED LIST changes: +ARIP1TAB11 PO; +ASPI-110 PO; +BUPR150XL PO; +CELE200C PO; +CLIN150 PO; +CYMB60CA PO; +FENT12DI T-DERMAL; +GABA300C5 PO; +LIPI20TA PO; +LOSA50TA PO; +NIFE30TA8 PO; +OXYGENTANK NAS.CANULA; +TIZA4CAP3 PO
[2016-12-23 16:03] VITALS: BP 137/82; PULSE 82; RESP 18; TEMP 99.1; O2SAT 92
--- NOTE | 2016-12-23 17:45 | PD ---
HPI Chief Complaint: Skin Problem Time Seen by Provider: 17:12 Travel History International Travel<30 days: No Contact w/Intl Traveler<30days: No Traveled to known affect area: No History of Present Illness HPI 71yo M with PMH of HTN, CAD s/p CABG presents to the ED with c/o right arm induration today. Pt was admitted for sepsis secondary to influenza pneumonia and discharged yesterday. The nurses had a hard time placing IV catheter in his right arm and now has areas of induration. Denies fever, trauma, chest pain , sob, n/v, abdominal pain, focal weakness or numbness. PFSH Past Medical History Hx Anticoagulant Therapy: Yes (81MG ASA) Arthritis: Yes Asthma: No Autoimmune Disease: No Blood Disorders: No Anxiety: Yes Depression: Yes Cancer: Yes (Skin) Cardiac Catheterization: Yes Cardiovascular Problems: Yes (HEART ATTACK; OPEN HEART, HTN) High Cholesterol: Yes Chemotherapy: No Congestive Heart Failure: Yes COPD: No Coronary Artery Disease: Yes Diabetes: No Diminished Hearing: Yes (HEARING AID LEFT EAR) Endocrine: No Gastrointestinal Disorders: No GERD: Yes Genitourinary: Yes (kidney stones) Hepatitis: No Hiatal Hernia: No Hypertension: Yes Immune Disorder: No Implanted Vascular Access Dvce: Yes Kidney Stones: Yes Medical other: Yes (HYPERCHOLESTEROLEMIA) Musculoskeletal: Yes (Chronic back pain) Neurologic: Yes (Concussion) Psychiatric: Yes (DEPRESSION) Reproductive: No Respiratory: No Myocardial Infarction: Yes Radiation Therapy: No Renal Failure: No Sickle Cell Disease: No Sleep Apnea: No Thyroid Disease: No Ulcer: No PNEUMOCCOCAL Vaccine (Year): 1 Past Surgical History Abdominal Surgery: Yes (appendectomy at age 12y/o) AICD: No Appendectomy: Yes Arteriovenous Shunt: No Body Medical Devices: Sternal wires Cardiac Surgery: Yes (quad by-pass) Coronary Artery Bypass Graft: Yes (X's 4) Ear Surgery: No Endocrine Surgery: No Eye Surgery: No Genitourinary Surgery: Yes (Uretheral dilatation) Insulin Pump: No Joint Replacement: No Oral Surgery: Yes (Sinus) Pacemaker: No Thoracic Surgery: Yes (BYPASS) Other Surgery: Yes Social History Alcohol Use: No Tobacco Use: No Substance Use: No Allergies-Medications (Allergen,Severity, Reaction): Coded Allergies: Penicillin (Verified Allergy, Severe, Rash, 12/23/16) Reported Meds & Prescriptions Reported Meds & Active Scripts Active Acetaminophen 500 Mg Cap 500 Mg PO Q4-6H PRN Nifedipine ER 24 HR (Nifedipine) 30 Mg Tab 30 Mg PO DAILY Oxygen tank (Oxygen) 1 Ea Tank 2 Liter SONIA.CANULA CONTINUOUS Oxygen Concentrator Portable Gaseous 2 L/min via Nasal Cannula Continuous For 99 months Cleocin (Clindamycin HCl) 150 Mg Cap 300 Mg PO Q6HR Losartan (Losartan Potassium) 50 Mg Tab 50 Mg PO BID Reported Cymbalta DR (Duloxetine HCl) 60 Mg Capdr 60 Mg PO DAILY Tizanidine (Tizanidine HCl) 4 Mg Cap 4 Mg PO BID Wellbutrin Xl 24 HR (Bupropion HCl) 150 Mg Tab 150 Mg PO DAILY Lipitor (Atorvastatin Calcium) 20 Mg Tab 20 Mg PO HS Aspirin 81 (Aspirin) 81 Mg Tabdr 81 Mg PO DAILY Fentanyl Patch 72 HR (Fentanyl) 12 Mcg/Hr Patch 25 Mcg T-DERMAL Q72H Remove old patch when new one placed. Gabapentin 300 Mg Cap 300 Mg PO HS Review of Systems Except as stated in HPI: all other systems reviewed are Neg Physical Exam Narrative GENERAL: 71yo M not in distress. SKIN: Warm and dry. HEAD: Atraumatic. Normocephalic. EYES: Pupils equal and round. No scleral icterus. No injection or drainage. ENT: No nasal bleeding or discharge. Mucous membranes pink and moist. NECK: Trachea midline. No JVD. CARDIOVASCULAR: Regular rate and rhythm. No murmur appreciated. RESPIRATORY: No accessory muscle use. Clear to auscultation. Breath sounds equal bilaterally. GASTROINTESTINAL: Abdomen soft, non-tender, nondistended. MUSCULOSKELETAL: RUE: Area of focal induration right forearm. Does not look increased in erythema than the left arm. Radial pulse intact. Forearm is soft outside the indurations. Ecchymoses antecubital region. Sensation intact. NEUROLOGICAL: Awake and alert. No obvious cranial nerve deficits. Motor grossly within normal limits. Normal speech. PSYCHIATRIC: Appropriate mood and affect; insight and judgment normal. Data Data Last Documented VS Vital Signs Date Time Temp Pulse Resp B/P Pulse Ox O2 Delivery O2 Flow Rate FiO2 12/23/16 19:57 84 18 92 Nasal Cannula 2 12/23/16 19:18 183/83 12/23/16 16:03 99.1 Orders Us Arm Venous Doppler (12/23/16 ) MDM Medical Decision Making Medical Screen Exam Complete: Yes Emergency Medical Condition: Yes Differential Diagnosis Superficial phlebitis vs. abscess (unlikely) vs. cellulitis vs. DVT Narrative Course 71yo M here with right arm swelling secondary to multiple IV attempts and infiltration of the IV. Impression is more superficial phlebitis. Sign out to next physician Dr. Gaston to follow up on US right upper extremity. Diagnosis Primary Impression: Superficial phlebitis Patient Instructions: General Instructions Departure Forms: Tests/Procedures Additional Instructions: Please follow up with your PMD in 3-7 days. Return to the ED if symptoms worsen. Med/Other Pt SpecificInfo: Prescription(s) given, No Change to Meds Scripts Acetaminophen 500 Mg [id number] Mg PO Q4-6H PRN (PAIN SCALE 1 TO 4) #20 CAP Ref 0 Prov:Maria C Grant DO 12/23/16 Disposition: 01 DISCHARGE HOME Condition: Stable Maria C Grant DO Dec 23, 2016 17:45
[2016-12-23] MEDS ORDERED: ACET500C PO (19:05)
[2016-12-23 19:18] VITALS: BP 183/83; PULSE 80; RESP 18; O2SAT 92
--- NOTE | 2016-12-23 19:26 | RADHPO ---
EXAM DATE/TIME: 12/23/2016 18:22 [place] COMPARISON: No previous studies available for comparison. INDICATIONS : Right arm swelling. MEDICAL HISTORY : Hypercholesterolemia. Gastroesophageal reflux disease. Congestive heart failure. Hearing loss. Head t rauma. Heart attack. Coronary artery disease. Anticoagulant therapy, Aspirin. Hypertension. Kidney st ones. Back pain. Arthritis. Depression. Anxiety. SURGICAL HISTORY : CABG Appendectomy. Back surgery. ENCOUNTER: Initial ACUITY: 1 day PAIN SCORE: 5/10 LOCATION: Right arm. FINDINGS: There is occlusive thrombus in the right distal cephalic vein at the proximal forearm extending to th e bifurcation. Subclavian vein, axillary vein, brachial vein and basilic vein are patent. CONCLUSION: 1. Positive for occlusive superficial thrombus in the right cephalic vein. No deep thrombus. Darwin Lemons MD on December 23, 2016 at 19:22 Board Certified Radiologist. This report was verified electronically.
--- NOTE | 2016-12-23 19:45 | PD ---
Physical Exam Date Seen by Provider: Dec 23, 2016 Time Seen by Provider: 19:38 Narrative accepted in transfer of care from Dr Grant GENERAL: SKIN: Warm and dry. Attention RUE area of focal superficial firmness and focal induration to the dorsum of the proximal forearm without increased warmth or erythema or fluctuance distally no forearm or hand edema proximally no ascending erythema and patient demonstrates full range of motion of the extremity without limitation secondary to pain or soft tissue swelling or joint swelling or noted effusion. Radial pulse 2+ to palpation. MUSCULOSKELETAL: No cyanosis, or edema. Data Data Last Documented VS Vital Signs Date Time Temp Pulse Resp B/P Pulse Ox O2 Delivery O2 Flow Rate FiO2 12/23/16 19:19 80 18 12/23/16 19:18 183/83 92 Nasal Cannula 2 12/23/16 16:03 99.1 Orders Us Arm Venous Doppler (12/23/16 ) [facility] Medical Record Reviewed: Yes Supervised Visit with XI: No Interpretation(s) Last Impressions Upper Extremity Ultrasound 12/23/16 0000 Signed Impressions: Service Date/Time: Friday, December 23, 2016 18:22 - CONCLUSION: 1. Positive for occlusive superficial thrombus in the right cephalic vein. No deep thrombus. Darwin Lemons MD Differential Diagnosis please refer to Dr Grant's dictation; accepted in transfer of care from Dr Grant Narrative Course accepted in transfer of care from Dr Grant @ 7:39 US per radiologist no DVT; patient with family at bedside informed of US results and stable for outpatient management Diagnosis Primary Impression: Superficial phlebitis Additional Impressions: Thrombophlebitis of cephalic vein Superficial thrombophlebitis of upper extremity Qualified Code: I80.8 - Superficial thrombophlebitis of right upper extremity Patient Instructions: General Instructions Departure Forms: Tests/Procedures Additional Instruction: Please follow up with your PMD in 3-7 days. Return to the ED if symptoms worsen. May use as tolerated over the counter ibuprofen/advil/motrin 200mg tablets 1-2 tablets as often as every 6-8 hours per package directions as needed for pain associated with inflammation (avoid prolonged use of ibuprofen) and may apply moist low heat to affected area for comfort intermittently. Scripts Acetaminophen 500 Mg [id number] Mg PO Q4-6H PRN (PAIN SCALE 1 TO 4) #20 CAP Ref 0 Prov:Maria C Grant DO 12/23/16 Disposition: 01 DISCHARGE HOME Condition: Stable Mallorie Gaston MD Dec 23, 2016 19:45
== END 2016-12-23 20:01 | disposition home or self-care (01) ==
LOC: PHED 15:45
DX: I82.811 Embolism and thrombosis of superficial veins of right lower extremity (principal); I25.10 Atherosclerotic heart disease of native coronary artery without angina pectoris; Z95.1 Presence of aortocoronary bypass graft; I10 Essential (primary) hypertension; E78.00 Pure hypercholesterolemia, unspecified; Z87.442 Personal history of urinary calculi; I25.2 Old myocardial infarction
CPT/HCPCS: 93971

== ENCOUNTER → 2018-04-14 | Outpatient (CLI) | payer MEDICARE ==
[~2018-04-14] MED LIST changes: +ACET500C PO; -ARIP1TAB11 PO; -ASPI-110 PO; +ASPI1TAB57 PO; -CELE200 PO; -CELE200C PO; -FENT12DI TD; -GABA100C4 PO
--- NOTE | 2018-04-17 09:42 | RSPPFT ---
DATE OF PROCEDURE: 04/14/18 COMMENTS: Spirometry with FVC of 3.8 predicted 4.2, FEV1 of 2.9 predicted 3.3, FEV1/FVC ratio 79% predicted 78%. Lung volumes are essentially within the predicted range. Airways resistance is increased. DLCO is 66% of predicted but within normal range when corrected for alveolar volume. IMPRESSION:
== END ==
LOC: HRSP 10:08
PROVIDERS: ATTEND Internal Medicine Pulmonary Disease
DX: R05 Cough (principal)
CPT/HCPCS: 36600; 82805; 94060; 94618; 94726; 94729

== ENCOUNTER → 2018-04-20 | Outpatient (CLI) | payer MEDICARE ==
--- NOTE | 2018-04-20 10:37 | RADRPT ---
EXAM DATE/TIME: 04/20/2018 10:02 [place] COMPARISON: No previous studies available for comparison. INDICATIONS : Dysphagia, intermittant FLUORO TIME: 2.2 minutes IMAGE COUNT: 1 CONTRAST: Dose as prescribed by speech pathologist. MEDICAL HISTORY : coughing after eating for 1 year. dropped bar on neck 342 years ago and broke his left clavicle. SURGICAL HISTORY : CABG. ENCOUNTER: Initial ACUITY: >1 year PAIN SCORE: 0/10 LOCATION: Bilateral neck FINDINGS: A modified barium swallow was performed with speech pathology. Patient was given a variety of liquids to swallow. There is no evidence of airway penetration or tracheal aspiration. A small Zenker's diverticulum is p resent above significant repeat cricopharyngeus spasm. For a full detailed report, see report by the speech pathologist. CONCLUSION: Zenker's diverticulum. Mo Catalan MD on April 20, 2018 at 10:34 Board Certified Radiologist. This report was verified electronically.
== END ==
LOC: HRAD 09:40
PROVIDERS: ATTEND Internal Medicine Pulmonary Disease
DX: R13.10 Dysphagia, unspecified (principal)
CPT/HCPCS: 74230; 92611; G8996; G8997; G8998